=== PATIENT | male | born 1955 | race Caucasian/White ===

== ENCOUNTER 2023-03-11 08:59 | Outpatient (REF) | payer MEDICARE, MEDICAID, SELFPAY ==
[2023-03-11 12:17] LABS: Alanine Aminotransferase 22 U/L (0-40); Albumin Level 4.2 g/dL (3.5-5.0); Alkaline Phosphatase 68 U/L (39-117); Aspartate Amino Transferase 15 U/L (5-37); Bilirubin Direct 0.2 mg/dL (0.0-0.5); Bilirubin Total 0.7 mg/dL (0.0-1.0); Cholesterol 147 mg/dL (<200); HDL Cholesterol 51 mg/dL (>40); LDL Cholesterol Calculated 85 mg/dL (<100); Triglycerides 59 mg/dL (<150)
== END 2023-03-11 09:00 | disposition home or self-care (01) ==
LOC: HO.HHCL 08:59
PROVIDERS: Visit Provider Internal Medicine Geriatric Medicine
DX: E11.9 Type 2 diabetes mellitus without complications (principal)
CPT/HCPCS: 36415; 80061; 80076

== ENCOUNTER 2023-09-14 16:19 | Outpatient (REF) | payer MEDICARE, MEDICAID, SELFPAY ==
[2023-09-14 17:57] LABS: Anion Gap 11 (12-20); Blood Urea Nitrogen 14 mg/dL (9-16); Carbon Dioxide 23 mmol/L (22-29); Chloride 110 mmol/L (96-108); Estimated Glomerular Filt Rate > 60; Glucose Random 231 mg/dL (60-115); Potassium 3.4 mmol/L (3.3-5.1); Sodium 141 mmol/L (135-145)
[2023-09-14 18:00] LABS: Creatinine Urine 83.23 mg/dL; Microalbumin Urine < 5.0 mg/L
== END 2023-09-14 16:20 | disposition home or self-care (01) ==
LOC: HO.HHCL 16:19
PROVIDERS: Visit Provider Internal Medicine Geriatric Medicine
DX: E11.65 Type 2 diabetes mellitus with hyperglycemia (principal)
CPT/HCPCS: 36415; 80048; 82570

== ENCOUNTER 2024-04-05 09:33 | Outpatient (REF) | payer MEDICARE, MEDICAID, SELFPAY ==
[2024-04-05 12:08] LABS: Alanine Aminotransferase 21 U/L (0-40); Albumin Level 4.1 g/dL (3.5-5.0); Alkaline Phosphatase 72 U/L (39-117); Anion Gap 12 (12-20); Aspartate Amino Transferase 13 U/L (5-37); Bilirubin Total 0.7 mg/dL (0.0-1.0); Blood Urea Nitrogen 19 mg/dL (9-16); Calcium 9.4 mg/dL (8.4-10.2); Carbon Dioxide 25 mmol/L (22-29); Chloride 107 mmol/L (96-108); Cholesterol 137 mg/dL (<200); Estimated Glomerular Filt Rate > 60; Glucose Random 140 mg/dL (60-115); HDL Cholesterol 45 mg/dL (>40); LDL Cholesterol Calculated 81 mg/dL (<100); Potassium 4.3 mmol/L (3.3-5.1); Sodium 140 mmol/L (135-145); Total Protein 6.9 g/dL (6.5-8.0); Triglycerides 57 mg/dL (<150)
[2024-04-05 12:14] LABS: Creatinine Urine 140.23 mg/dL; Microalbum/Creatinine Ratio Ur 6.4 ug/mg cr (<30)
[2024-04-05 12:43] LABS: ~HepC Num1 0.11 S/CO (0.00-0.79); ~Hepatitis C Antibody Nonreactive (Nonreactive)
== END 2024-04-05 09:34 | disposition home or self-care (01) ==
LOC: HO.HHCL 09:33
PROVIDERS: Visit Provider Internal Medicine Geriatric Medicine
DX: E11.65 Type 2 diabetes mellitus with hyperglycemia (principal); Z11.59 Encounter for screening for other viral diseases
CPT/HCPCS: 36415; 80053; 80061; 82043; 82570; 86803

== ENCOUNTER 2024-08-22 14:29 | Outpatient (REF) | payer MEDICARE, MEDICAID, SELFPAY ==
--- OUTSIDE RECORDS SUMMARY | 2024-08-22 16:08 | XMS_ITS | Clinical Summary ---
Author Organization [address] [facility] Address [address] [place] [address] Phone Care Team Providers Care Band Instrument Maker Name Role Phone Alycia Ruelas MD Primary Care Pro vider Allergies Active Allergy Reactions Criticality Noted Date Comments Lovastatin 03/31/2024 Muscle pain Simvastatin 03/31/2024 Muscle pain Medications Medication Sig Dispensed Refills Start Date End Date Status aspirin 81 mg chewable tablet Chew 1 tablet (81 mg total) 1 (one) time each day. Active insulin glargine (LANTUS SoloStar) 100 unit/mL (3 mL) injection pen Inject 10 Units into the skin daily. Active glucose 4 gram chewable tablet Take 4 Tablets by mouth as needed. Active dulaglutide (Trulicity) 4.5 mg/0.5 mL pen injector injection Inject 4.5 mg into the skin once a week. Active empagliflozin-metformi n (Synjardy XR) 12.5-1,000 mg tablet, IR - ER, biphasic 24hr Take by mouth 2 Times Daily. Active pravastatin (PRAVACHOL) 40 mg tablet Take 1 tablet (40 mg total) by mouth 1 (one) time each day. Active sildenafiL (VIAGRA) 50 mg tablet Take 1 tablet (50 mg total) by mouth as needed. Active Active Problems Problem Noted Date Diagnosed Date Subungual injury of toe of right foot 03/31/2024 Encounters Date Type Department Care Team Description 07/06/2024 9:15 AM EST Office Visit Orthopedic Surgery [facility] [address] [facility] [address] [place] [address] John Ervin, DPM Dermatophytosis of nail (Primary Dx); Pain in toe of right foot; Pain in toe of left foot; Corns and callosities; Metatarsalgia of both feet; Type II diabetes mellitus with peripheral circulatory disorder (CMS/HCC); Diabetic mononeuropathy simplex (CMS/HCC); Acquired hammer toe of right foot; Hammer toe of left foot from Last 3 Months Immunizations Name Administration Dates Next Due Moderna SARS-CoV-2 COVID-19, mRNA, LNP-S, preservative free 07/16/2022 Medical History Medical History Date Comments T2DM (type 2 diabetes mellitus) (CMS/HCC) DX:T2DM (type 2 diabetes mellitus) ([facility]) Hyperlipidemia DX:Hyperlipidemi a Social History Tobacco Use Types Packs/Day Years Used Date Smoking Tobacco: Never Assessed Sex and Gender Information Value Date Recorded Sex Assigned at Not on file Gender Identity Not on file Sexual Orientation Not on file Job Start Date Occupation Industry Not on file Not on file Not on file Obstetrics History Last Filed Vital Signs Vital Sign Reading Time Taken Comments Blood Pressure - - Pulse - - Temperature - - Respiratory Rate - - Oxygen Saturation - - Inhaled Oxygen Concentration - - Weight 72.1 kg (159 lb) 07/06/2024 8:43 AM EST Height 170.2 cm (5' 7.01 ) 07/06/2024 8:43 AM ES T Body Mass Index 24.9 07/06/2024 8:43 AM EST Plan of Treatment Health Maintenance Due Date Last Done Comments Diabetes: Annual GFR (Glomerular Filtration Rate) 1954 Diabetes: Annual Foot Exam 1964 Diabetes: Annual Retina Eye Exam 1965 Abdominal Aortic Aneurysm (AAA) Screen 04/28/2024 Colorectal Cancer Screening: Colonoscopy 04/28/2024 Falls Risk Assessment 04/28/2024 Medicare Annual Wellness Visit 04/28/2024 Social Influencers of Health Screening 04/28/2024 Diabetes: Annual Urine Albumin-Creatinine Ratio (uACR) 04/29/2024 Pneumococcal Vaccine: 65+ Years (3 of 3 - PPSV23 or PCV20) 06/22/2024 12/06/2021, 06/22/2019, 04/29/2012 Depression Screening 09/14/2024 09/14/2023 Diabetes: Blood Sugar Control Test (HGBA1C) 12/19/2024 06/20/2024 DTaP,Tdap,and Td Vaccines (4 - Td or Tdap) 01/13/2028 01/12/2018, 07/25/2012, 04/22/2012 Cholesterol Screening (Lipid Panel) 04/05/2029 04/05/2024 Zoster Vaccines Completed 06/08/2023, 02/18, 12/31/2015 RSV Immunization Patients 60+ Years Old Completed 06/22/2023 Hepatitis B Vaccines Completed 09/02/2023, 04/07/2023, 03/11/2023 Hepatitis C Screening Completed 04/05/2024 Influenza Vaccine Completed 04/05/2024, , 04/18/2022, Additional history exists COVID-19 Vaccine Completed 05/03/2024, , 07/16/2022, Additional history exists HIB Vaccines Aged Out No longer eligi ble based on patient's age to complete this topic HPV Vaccines Aged Out No longer eligi ble based on patient's age to complete this topic Hepatitis A Vaccines Aged Out No long er eligible based on patient's age to complete this topic IPV Vaccines Aged Out No longer eligi ble based on patient's age to complete this topic MMR Vaccines Aged Out No longer eligi ble based on patient's age to complete this topic Meningococcal ACWY Vaccine Aged Out N o longer eligible based on patient's age to complete this topic RSV Immunization Patients Under 20 months Aged Out No longer eligible based on patient's age to complete this topic Varicella Vaccines Aged Out No longer eligible based on patient's age to complete this topic Care Teams Band Instrument Maker Relationship Specialty Start Date End Date Alycia Ruelas MD [address] [facility] [address] [place] [id number] PCP - General 02/23/24
--- OUTSIDE RECORDS SUMMARY | 2024-08-22 16:09 | XMS_ITS | Encounter Summary ---
Author Organization [employer] Address [address] [facility] [address] [place] [address] Care Team Providers Care Shellfish Harvester Name Role Phone Name, El TURNER Primary Care Provider [phone] Kanwal Whiteside PharmD Unavailable [phone] John Ervin DPM Unavailable [phone] Marilu Castro MD Unavailable [phone] Reason for Visit * Reason Comments Medicare Annual Wellness Visit Initial A [place] scheduled Encounter Details Date Type Department Care Team ([facility] st Contact Info) Description 07/26/2024 Patient Outreach [facility] MEDICINE [address] [place], [place] [id number] Name, MD El [address] [place] [address] Medicare Annual Wellness Visit Initial (AWV scheduled) Social History Tobacco Use Types Packs/Day Years Used Date Smoking Tobacco: Former Cigarettes Smokeless Tobacco: Never Alcohol Use Standard Drinks/Week Comments Not Currently 0 (1 standard drink = 0.6 oz pur e alcohol) Depression Answer Date Recorded Patient Health Questionnaire-9 Score 0 09/14/2023 Patient Health Questionnaire-9 Score 0 09/14/2023 Last PHQ-9: Questionnaire Data Not on file 0 09/14/2023 Housing Stability Answer Date Recorded What is your housing situation today? I have marcia ferrari 09/14/[address] you li ve. Do you have problems with any of the following? None of the above 09/14/2023 Food Insecurity Answer Date Recorded Within the past 12 months, y ou worried that your food would run out before you got money to buy more: Never True 09/14/2023 Within the past 12 months,th e food you bought just didn't last and you didn't have enough money to get more: Never True Transportation Answer Date Recorded In the past 12 months, has l ack of transportation kept you from medical appts, meetings, work or from getting things needed for daily living? No 09/14/2023 Utilities Answer Date Recorded In the past 12 months, has t he electric, gas, oil or water company threatened to shut off services in your home? No 09/14/2023 Depression Answer Date Recorded Patient Health Questionnaire-2 Score 0 09/14/2023 Sex and Gender Information Value Date Recorded Sex Assigned at Male 05/19/2022 10:17 AM EDT Legal Sex Male 10:17 AM EDT Gender Identity Male 05/19/2022 10:17 AM EDT Sexual Orientation Choose not to disclose 2021 10:17 AM EDT documented as of this encounter Progress Notes * Elisa Vargas - 07/26/2024 1:29 PM EST CC Elisa placed outbound call to patient for Annual Wellness Visit outreach. Patient's name and were confirmed. Patient educated on the purpose of Medicare Annual Wellness Visits and is agreeable to an appointment with provider. Insurance verified prior to scheduling. Patient scheduled for AWV appointment on 08/22/2024 at 1:00 PM with [facility] Appropriate screenings completed in anticipation of appointment. Medicare Wellness Visit Health Risk Assessment was completed with the patient over the phone and scanned into patient's chart for review at the visit. Patient advised to bring to appointment a photo id and insurance card. Also advised to bring in all medications, including [id number], vitamins, or supplements and any copies of Advance Directives and Health Care Proxy forms. Patient provided with education on contacting the Health Center with any questions or concerns prior to the scheduled appointment. Patient educated on extended clinic hours on Thursday through Thursday, and Walk- In Urgent Care Located in [facility] of [facility]. Patient provided with after-hours line for [facility], , which offer night time triage service and option to transfer to material requisitioner provider if needed.Annual Wellness Visit letter will be mailed out to patient's address. documented in this encounter Plan of Treatment Upcoming Encounters Date Type Department Care Team (Late st Contact Info) Description 09/19/2024 10:00 AM EST Medication Management [facility] [address] [place] [address] Kanwal Whiteside PharmD [address] [place] [address] 09/26/2024 10:00 AM EDT Office Visit [facility] OPTOMETRY [address] [place] [address] Vel, Priscilla, OD [address] [place] [address] 10/19/2024 2:15 PM EDT Office Visit [facility] [address] [place] [address] Name, MD El [address] [place] [address] documented as of this encounter Goals Goal Patient Goal Type Associated Problems Recent Progress Patient-Stated? Author Hemoglobin A1c < 7 Result Component 6.9( 4 11:03 AM EST) No Kanwal Whiteside PharmThelma Record your blood sugar as directed Result Component No Kanwal Whiteside PharmD Note: Use CGM, ensuring sensor is scanned at least once every 8 hours to capture 24H data. Check BG manually, as directed. documented as of this encounter Visit Diagnoses Not on filedocumented in this encounter Additional Health Concerns Assessment Noted Time PHQ-9 Depression Total Score: 0 09/14/19 24 3:42 PM EST documented as of this encounter Care Teams Shellfish Harvester Relationship Specialty Start Date End Date Name, MD El [address] [place] [id number] PCP - General Family Medicine 10/24/15 Kanwal Whiteside, PharmD [address] [place] [phone] Pharmacist Internal Medicine 01/28/23 John Ervin DPM [address] [place] [id number] Podiatry 02/18/24 Marilu Castro MD [address] [place] [id number] Family Physician Dermatology 02/18/24 08/21/24 documented as of this encounter
--- OUTSIDE RECORDS SUMMARY | 2024-08-22 16:09 | XMS_ITS | Encounter Summary ---
Author Organization [employer] Address [address] [facility] 7t [place] [address] Care Team Providers Care Adhesive Bonding Machine Operator Name Role Phone Name, El TURNER Primary Care Provider [phone] Kanwal Whiteside PharmD Unavailable [phone] Priscilla Crowder OD Unavailable [phone] John Ervin DPM Unavailable Reason for Referral * Consultation (Routine) - Pending Review Specialty Diagnoses / Procedures Referred By Zaira macario Referred To Contact Audiology Diagnoses Failed hearing screening Maegan Robledo MD [address] [place] [address] Phone: tel: fax: Referral ID Status Reason Start Date Expiration Date Visits Requested Visits Authorized [id number] Pending Review Specialty Services Required 08/22/2024 08/22/2025 1 1 * Imaging (Routine) - Authorized Specialty Diagnoses / Procedures Referred By Zaira macario Referred To Contact Cardiology Diagnoses Personal history of smoking Procedures US AAA Screening Maegan Robledo MD [address] [place] [address] Phone: tel: fax: [address] Phone: tel: fax: Referral ID Status Reason Start Date Expiration Date Visits Requested Visits Authorized [id number] Authorized Perform Procedure 08/22/2024 08/22/2025 1 1 Reason for Visit * Reason Comments AWV Encounter Details Date Type Department Care Team (Late st Contact Info) Description 08/22/2024 1:00 PM EST Office Visit [facility] [address] [place] [address] Maegan Robledo MD [address] [place] [address] Personal history of smoking (Primary Dx); Screen for sexually transmitted diseases; Failed hearing screening Social History Tobacco Use Types Packs/Day Years Used Date Smoking Tobacco: Former Cigarettes 0.5 10 1 970 - 9153 Passive Smoke Exposure: Past Smokeless Tobacco: Never Tobacco Cessation:Counseling Given: No Alcohol Use Standard Drinks/Week Comments Not Currently 0 (1 standard drink = 0.6 oz pur e alcohol) Depression Answer Date Recorded Patient Health Questionnaire-9 Score 1 08/22/2024 Patient Health Questionnaire-9 Score 1 08/22/2024 Last PHQ-9: Questionnaire Data Not on file 0 08/22/2024 Housing Stability Answer Date Recorded What is your housing situation today? I have housing today, but I am worried about losing housing in the future 08/22/[address] you li ve. Do you have problems with any of the following? None of the above 08/22/2024 Food Insecurity Answer Date Recorded Within the [...] Date Recorded Patient Health Questionnaire-2 Score 0 08/22/2024 Internet Access Answer Date Recorded Internet Access Q1 Yes 08/22/2024 Internet Access Q2 Not on file 08/22/2024 Sex and Gender Information Value Date Recorded Sex Assigned at Male 05/19/2022 10:17 AM EDT Legal Sex Male 10:17 AM EDT Gender Identity Male 05/19/2022 10:17 AM EDT Sexual Orientation Choose not to disclose 2021 10:17 AM EDT documented as of this encounter Last Filed Vital Signs Vital Sign Reading Time Taken Comments Blood Pressure 118/73 08/22/2024 1:07 PM EST Pulse 89 08/22/2024 1:07 PM EST Temperature - - Respiratory Rate 18 08/22/2024 1:07 PM EST Oxygen Saturation - - Inhaled Oxygen Concentration - - Weight 69.7 kg (153 lb 9.6 oz) 08/22/2024 1:07 P M EST Height 168.9 cm (5' 6.5 ) 08/22/2024 1:07 PM EST Body Mass Index 24.42 08/22/2024 1:07 PM EST documented in this encounter Progress Notes * Maegan Robledo MD - 08/22/2024 1:00 PM EST Subjective Patient ID: Beny Friedman is a 69 y.o. year old male who presents today for Medicare Annual Wellness Visit. Preferred language for medical information: Scottish Objective Vitals: 08/22/24 1307 BP: 118/73 BP Location: Left arm Patient Position: Sitting BP Cuff Size: Adult Pulse: 89 Resp: 18 Weight: 153 lb 9.6 oz (69.7 kg) Height: 5' 6.5 (1.689 m) Hearing Screening 1000Hz 2000Hz 4000Hz Right ear 25 25 55 Left ear 25 40 50 Note: bilateral ear exam reveals clear EAC's. Allergies Allergen Reactions Lovastatin Other Other reaction(s): muscle pain, hiccups Simvastatin Other reaction(s): muscle pain Current Outpatient Medications: aspirin (Aspirin Low Dose) 81 MG EC tablet, Take 1 tablet (81 mg) by mouth Once per day., Disp: 90 tablet, Rfl: 3 Continuous Blood Gluc Motion Picture Camera Lens Technician (FreeStyle Tierra 2 [place]) device, Use as directed, Disp: 1 each, Rfl: 0 Continuous Glucose Sensor (FreeStyle Tierra 2 Sensor) [facility], Apply 1 sensor, as directed, every 14 days for CGM, Disp: 2 each, Rfl: 11 Dulaglutide (Trulicity) 4.5 MG/0.5ML solution auto-injector, Inject 4.5 mg under the skin 1 (one) time per week., Disp: , Rfl: empagliflozin-metFORMIN ER (Synjardy XR) 12.5-1000 MG 24 hr tablet, Take 1 tablet by mouth with breakfast and with evening meal., Disp: 60 tablet, Rfl: 11 glucose 4 g chewable tablet, Chew 4 tablets (16 g) if needed for low blood sugar., Disp: 20 tablet,Rfl: 11 glucose blood (FreeStyle Precision David Test) test strip, Use to test blood sugar up to 2 times daily, as directed, Disp: 50 each, Rfl: 5 insulin glargine (Basaglar KwikPen) 100 UNIT/ML pen, INJECT 12 UNITS SUBCUTANEOUSLY ONCE DAILY, Disp: 15 mL, Rfl: 5 insulin pen needle (BD Pen Needle Luzmaria U/F) 32G x 4 mm misc, Inject 1 each under the skin Once per day., Disp: 100 each, Rfl: 3 pravastatin (Pravachol) 40 MG tablet, TAKE 1 TABLET BY MOUTH EVERY EVENING, Disp: 90 tablet, Rfl: 3 TRUEplus Lancets 33G misc, Use to test blood sugar 2 time(s) daily, Disp: 100 each, Rfl: 11 Immunization History Administered Date(s) Administered Hep B, adult 03/11/2023, 04/07/2023, 09/02/2023 Influenza High-dose Quadrivalent Preservative Free 05/27/2021, 04/18/2022 Influenza Quadrivalent Adjuvanted 03/25/2020 Influenza injectable quadrivalent IIV4 with preservative 04/04/2016, 04/28/2017 Influenza injectable quadrivalent preservative free 04/23/2015, 03/14/2017, 04/04/2018, 04/18/2019,04/07/2023 Influenza, High Dose Seasonal, Preservative Free 04/05/2024 Influenza, IIV3, injectable 04/07/2011, 05/12/2014 Influenza, Split (incl. purified surface antigen) 04/22/2012 Perico SARS-CoV-2 Vaccination 10/03/2020 Pfizer Covid-19 Vaccine 12+ 05/13/2021, 12/06/2021, 06/08/2023, 05/03/2024 Pfizer Covid-19 Vaccine 12+ Bivalent 07/16/2022 Pfizer Covid-19 Vaccine 12+ nolberto-sucrose (Duke Cap) 12/06/2021 Pneumococcal Conjugate PCV 13 12/06/2021 Pneumococcal Polysaccharide PPSV23 04/29/2012, 06/22/2019 RSV Bivalent 06/22/2023 TD (adult), 2 Lf tetanus toxoid, preservative free, adsorbed 04/22/2012 Td (adult), 5 Lf tetanus toxoid, preservative free, adsorbed 07/25/2012 Tdap 01/12/2018 Zoster, Recombinant 03/10/2023, 06/08/2023 Zoster, live 12/31/2015 Past Medical History: Diagnosis Date Alcoholism (CMS/HCC) In remission Cataract Diabetes mellitus (CMS/HCC) ED (erectile dysfunction) HLD (hyperlipidemia) Macular drusen, bilateral Needle phobia Retinal hole of right eye History reviewed. No pertinent surgical history. Family History Problem Relation Name Age of Onset Hypertension Mother Kusum Diabetes Mother Kusum Heart disease Mother Kusum Lung disease Mother Kusum Other (smoker) Mother Kusum Diabetes Father Rusty Stroke Father Rusty Hypertension Father Rusty Obesity Father Rusty Heart disease Father Rusty Other (Other) Father Rusty bilateral BKA Social History Tobacco Use Smoking Status Former Current packs/day: 0.00 Average packs/day: 0.5 packs/day for 10.0 years (5.0 ttl pk-yrs) Types: Cigarettes Start date: 1969 Quit date: 1979 Years since quittin.1 Passive exposure: Past Smokeless Tobacco Never Patient Health Questionnaire-9 Score: 1 (08/22/2024 1:15 PM) Patient Health Questionnaire-2 Score: 0 (08/22/2024 1:15 PM) Thoughts that you would be better off or hurting yourself in some way: Not at all (08/22/2024 1:15 PM) SBIRT - Alcohol How many times in the past year have you had 5 or more (for men) or 4 or more (for women) drinks eunice day?: None Score: 0 SBIRT - Drugs How many times in the past year have you used an illegal drug or used a prescription medication fornon-medical reasons?: None Score: 0 Social Drivers of Health Tobacco Use: Medium Risk (08/22/2024) Tobacco Smoking Tobacco Use: Former Smokeless Tobacco Use: Never Passive Exposure: Past Alcohol Use: Not on file Food Insecurity: Low Risk (09/14/2023) Food Insecurity Within the past 12 months, you worried that your food would run out before you got money to buy more:: Never True Within the past 12 months,the food you bought just didn't last and you didn't have enough money to get more: : Never True Transportation Needs: Low Risk (09/14/2023) Transportation In the past 12 months, has lack of transportation kept you from medical appts, meetings, work or from getting things needed for daily living? : No Intimate Partner Violence: Not on file Depression: None or minimal depression (08/22/2024) Depression PHQ-9 Score: 1 Last PHQ-9: Flowsheet Data: 1 Last PHQ-9: Questionnaire Data: Not on file Housing Stability: Low Risk (08/22/2024) Housing Stability What is your housing situation today?: I have housing today, but I am worried about losing housing in the future Think about the place you live. Do you have problems with any of the following? : None of the above Utilities: Low Risk (09/14/2023) Utilities In the past 12 months, has the electric, gas, oil or water [employer] threatened to shut off services in your home? : No Internet Access: Low Risk (08/22/2024) Internet Access Internet Access Q1: Yes Internet Access Q2: Not on file Cognitive Assessment (Mini-Cog): [x] Normal [] Abnormal Three Word Recall: 2 out of 3 Clock Drawin out of 2 Total Score: 4 out of 5 Mini-Cog sheet to be scanned into chart. Functional Assessment: Activities of Daily Living ([place] ADL) Bathing: independent Dressing: independent Toileting: independent Transferring: independent Continence: independent Feeding: independent SHOWCASE MAKER: No Fall Risk Assessment: [x] Low risk [] High risk Feels unsteady when standing or walking? Yes Worries about falling? No Has fallen in past year? No Number of falls? N/A TUG completed: No Score: Patient Care Team: El Sommer MD as PCP - General (Family Medicine) Juventino TavarezD as Pharmacist (Internal Medicine) John Ervin DPM (Podiatry) Priscilla Crowder OD (Optometry) Advance Care Planning: Patient's current capacity: Full capacity Agent(s): Health Care Proxy paperwork is incomplete. [place] Medical Orders for Life-Sustaining Treatment (MOLST) is incomplete. Code Status: Assume Full Assessment/Plan Health Maintenance Topic Date Due Diabetes: Foot Exam 09/14/2024 Diabetes: Hemoglobin A1C 12/19/2024 Lipid Panel 04/05/2025 Diabetes: Urine Protein Screening 04/05/2025 Depression Screening 08/22/2025 Tobacco Screening 08/22/2025 SDOH Screening 08/22/2025 Alcohol/Substance Use Screening 08/22/2025 Eye Exam 03/28/2026 Colorectal Cancer Screening 11/12/2026 Pneumococcal Vaccine: 50+ Years (3 of 3 - PCV20 or PCV21) 12/06/2026 DTaP/Tdap/Td Vaccines (2 - Td or Tdap) 01/13/2028 RSV Patients and Patients Aged 60 years or older Completed Hepatitis B Vaccines Completed Influenza Vaccine Completed Zoster Vaccines Completed Hepatitis C Screening Completed COVID-19 Vaccine Completed RSV under 20 months Aged Out HIB Vaccines Aged Out IPV Vaccines Aged Out Hepatitis A Vaccines Aged Out Meningococcal Vaccine Aged Out Rotavirus Vaccines Aged Out HPV Vaccines Aged Out Patient refused the following health maintenance recommendations: none Problem List Items Addressed This Visit None Visit Diagnoses Personal history of smoking - Primary Relevant Orders AAA Screening Screen for sexually transmitted diseases Relevant Orders HIV-1/2 Antigen and Antibodies, Fourth Generation, with Reflexes Failed hearing screening Relevant Orders Referral to Audiology Counseling/Education [] Lung Cancer Screening Form Completed Yes [] Self Reported Health Status Completed Yes [] Print After Visit Summary (AVS) [] Advance directives handout provided [x] Schedule a visit to complete MOLST [] Fall risk identified: [] Work on strength/balance [] Stay hydrated [] Start daily vitamin D supplement [] Reduce home hazards (handout provided) [] High risk medications identified - schedule FU with PCP to discuss [x] Follow-up with PCP Yes MOLST Follow-up scheduled 10/19/24 Maegan Churchill, have met with the patient, reviewed the RN note and agree with the assessment & plan of care as documented above. Summary and recommendations: Patient referred to Audiology due to failed hearing screen. HIV test ordered. AAA screen ordered. Sandra scheduled with PCP on 10/19 to review these lab results and discuss MOLST. Maegan Robledo MD documented in this encounter Plan of Treatment Upcoming Encounters Date Type Department Care Team (Late st Contact Info) Description 09/19/2024 10:00 AM EST Medication Management [facility] [address] [place] [address] Puia, Kanwal, PharmD [address] [place] [address] 09/26/2024 10:00 AM EDT Office Visit [facility] OPTOMET[facility] [address] [place] [address] Vel, Priscilla, OD [address] [place] [address] 10/19/2024 2:15 PM EDT Office Visit [facility] [address] [place] [address] Name, MD El [address] [place] [address] Scheduled Orders Name Type Priority Associated Diagnoses Orde r Schedule HIV-1/2 Antigen and Antibodies, Fourth Generation, with Reflexes Lab Routine Screen for sexually transmitted diseases Expected: 08/22/2024 (Approximate), Expires: 08/22/2025 Scheduled Referrals Name Type Priority Associated Diagnoses Orde r Schedule Referral to Audiology Outpatient Referral Routine Failed hearing screening Expected: 08/22/2024 (Approximate), Expires: 08/22/2025 documented as of this encounter Goals Goal Patient Goal Type Associated Problems Recent Progress Patient-Stated? Author Hemoglobin A1c < 7 Result Component 6.9( 4 11:03 AM EST) No Puia, Kanwal, PharmD Record your blood sugar as directed Result Component No Puia, Kanwal, PharmD Note: Use CGM, ensuring sensor is scanned at least once every 8 hours to capture 24H data. Check BG manually, as directed. documented as of this encounter Visit Diagnoses Diagnosis Personal history of smoking- Primary Personal history of tobacco use, presenting hazards to health Screen for sexually transmitted diseases Screening examination for venereal disease Failed hearing screening Encounter for hearing examination following failed hearing screening documented in this encounter Additional Health Concerns Assessment Noted Time PHQ-9 Depression Total Score: 1 08/22/19 25 1:15 PM EST documented as of this encounter Care Teams Adhesive Bonding Machine Operator Relationship Specialty Start Date End Date Name, MD El [address] [place] [address] PCP - General Family Medicine 10/24/15 Kanwal Whiteside PharmD [address] [place] [address] Pharmacist Internal Medicine 01/28/23 Priscilla Crowder OD [address] [place] [address] Optometry 08/18/24 John Ervin DPM [address] [place] [address] Podiatry 02/18/24 documented as of this encounter
--- OUTSIDE RECORDS SUMMARY | 2024-08-22 16:09 | XMS_ITS | Encounter Summary ---
Author Organization [employer] Address [address] [facility] 7t [place] [address] Care Team Providers Care Cardiograph Operator Name Role Phone Name, El TURNER Primary Care Provider [phone] Kanwal Whiteside PharmD Unavailable [phone] John Ervin DPM Unavailable [phone] Marilu Castro MD Unavailable [phone] Encounter Details Date Type Department Care Team (Late st Contact Info) Description 08/16/2024 Telephone [facility] [address] [place] [address] Yne Knox, RN Social History Tobacco Use Types Packs/Day Years [...] AM EDT documented as of this encounter Miscellaneous Notes * Telephone Encounter - Yen Knox RN - 08/16/2024 2:10 PM EST Med B form faxed to [facility] and confirmation received. Form placed in H.I.M scanning bin. documented in this encounter Plan of Treatment Upcoming Encounters Date Type Department Care Team (Late st Contact Info) Description 09/19/2024 10:00 AM EST Medication Management [facility] [address] [place] [address] Kanwal Whiteside, PharmD [address] [place] [address] 09/26/2024 10:00 AM EDT Office Visit [facility] OPTOMETRY [address] [place] [address] Priscilla Crowder, OD [address] [place] [address] 10/19/2024 2:15 PM EDT Office Visit [facility] [address] [place] [address] Name, MD El [address] [place] [address] documented as of this encounter Goals Goal Patient Goal Type Associated Problems Recent Progress Patient-Stated? Author Hemoglobin A1c < 7 Result Component 6.9( 4 11:03 AM EST) No Kanwal Whiteside, PharmD Record your blood sugar as directed [...] documented as of this encounter Care Teams Cardiograph Operator Relationship Specialty Start Date End Date Name, MD El [address] [place] [address] PCP - General Family Medicine 10/24/15 Kanwal Whiteside PharmD [address] [place] [address] Pharmacist Internal Medicine 01/28/23 John Ervin DPM [address] [address] Podiatry 02/18/24 Marilu Castro MD [address] [place] [address] Family Physician Dermatology 02/18/24 08/21/24 documented as of this encounter
--- OUTSIDE RECORDS SUMMARY | 2024-08-22 16:09 | XMS_ITS | Encounter Summary ---
Author Organization [employer] Address [address] [facility] 7t [place] [address] Care Team Providers Care Fuel Tank Sealer And Tester Name Role Phone Name, El TURNER Primary Care Provider [phone] Kanwal Whiteside PharmD Unavailable [phone] Priscilla Crowder OD Unavailable [phone] John Ervin DPM Unavailable [phone] Marilu Castro MD Unavailable [phone] Encounter Details Date Type Department Care Team (Late st Contact Info) Description 08/18/2024 Telephone [facility] [address] [place] [address] Darline Leon RN Social History Tobacco Use Types Packs/Day [...] encounter Miscellaneous Notes * Telephone Encounter - Darline Leon RN - 08/18/2024 1:53 PM EST T/C to pt to perform Medical/Surgical/Family history before AWV on Thursday. No answer, left voicemail to return call to [facility]. documented in this encounter Plan of Treatment Upcoming Encounters Date Type Department Care Team (Late st Contact Info) Description 09/19/2024 10:00 AM EST Medication Management [facility] [address] [place] [phone] Kanwal Whiteside, PharmD [address] [place] [address] 09/26/2024 10:00 AM EDT Office Visit [facility] OPTOMETRY [address] [place] [address] Vel, Priscilla, OD [address] [place] [address] 10/19/2024 2:15 PM EDT Office Visit [facility] [address] [place] [address] Name, MD El [address] [place] [address] documented as of this encounter Goals Goal Patient Goal Type Associated Problems Recent Progress Patient-Stated? Author Hemoglobin A1c < 7 Result Component 6.9( 4 11:03 AM EST) No Knawal Whiteside PharmD Record your blood sugar as directed [...] documented as of this encounter Care Teams Fuel Tank Sealer And Tester Relationship Specialty Start Date End Date Name, MD El [address] [place] [address] PCP - General Family Medicine 10/24/15 Kanwal Whiteside PharmD [address] [place] [address] Pharmacist Internal Medicine 01/28/23 Priscilla Crowder OD [address] [place] [address] Optometry 08/18/24 John Ervin DPM [address] [place] [address] Podiatry 02/18/24 Marilu Castro MD [address] [place] [address] Family Physician Dermatology 02/18/24 08/21/24 documented as of this encounter
--- OUTSIDE RECORDS SUMMARY | 2024-08-22 16:09 | XMS_ITS | Encounter Summary ---
Author Organization [employer] Address [address] [facility] 7t [place] [address] Care Team Providers Care Manager Cath Lab Name Role Phone Name, El TURNER Primary Care Provider [phone] Kanwal Whiteside PharmD Unavailable [phone] Priscilla Crowder OD Unavailable [phone] John Ervin DPM Unavailable [phone] Encounter Details Date Type Department Care Team (Latest Contact Info) Description 08/22/2024 Travel Social History Tobacco Use Types Packs/Day Years Used Date Smoking Tobacco: Former Cigarettes 0.5 10 1 970 - 1980 Passive Smoke Exposure: Past Smokeless Tobacco: Never Alcohol Use Standard Drinks/Week [...] AM EDT documented as of this encounter Plan of Treatment Upcoming Encounters Date Type Department Care Team (Late st Contact Info) Description 09/19/2024 10:00 AM EST Medication Management [facility] [address] [place] [address] Kanwal Whiteside PharmD [address] [place] [address] 09/26/2024 10:00 AM EDT Office Visit [facility] OPTOMETRY [address] [place] [address] Vel, Priscilla, OD [address] [place] [address] 10/19/2024 2:15 PM EDT Office Visit [facility] [address] [place] [address] Name, MD El [address] [place] [address] documented as of this encounter Goals Goal Patient Goal Type Associated Problems Recent Progress Patient-Stated? Author Hemoglobin A1c < 7 Result Component 6.9( 11:03 AM EST) No Kanwal Whiteside PharmD Record your blood sugar as [...] documented as of this encounter Care Teams Manager Cath Lab Relationship Specialty Start Date End Date Name, MD El [address] [place] [address] PCP - General Family Medicine 10/24/15 Kanwal Whiteside PharmD [address] [place] [address] Pharmacist Internal Medicine 01/28/23 Priscilla Crowder OD [address] [place] [address] Optometry 08/18/24 John Ervin DPM [address] [place] [address] Podiatry 02/18/24 documented as of this encounter
--- OUTSIDE RECORDS SUMMARY | 2024-08-22 16:09 | XMS_ITS | Encounter Summary ---
Author Organization [employer] Address [address] [facility] [address] [place] [address] Care Team Providers Care Dermatology Specialist Name Role Phone Name, El TURNER Primary Care Provider Kanwal Whiteside PharmD Unavailable [phone] Priscilla Crowder OD Unavailable [phone] John Ervin DPM Unavailable [phone] Marilu Castro MD Unavailable [phone] Reason for Visit * Reason Comments Med Refill Encounter Details Date Type Department Care Team (Late st Contact Info) Description 08/19/[address] [facility] MEDICINE [address] [place] [address] [phone] Name, MD El [address] [place] [address] [phone] Type 2 diabetes mellitus without complication, without long-term current use of insulin ([facility]) Social History Tobacco Use Types Packs/Day Years Used Date Smoking Tobacco: Former Cigarettes Smokeless Tobacco: Never Depression Answer Date Recorded Patient Health Questionnaire-9 Score 0 07/16/2022 Depression Answer Date Recorded Patient Health Questionnaire-2 Score 0 07/16/2022 Sex and Gender Information Value Date Recorded Sex Assigned at Male 05/19/2022 10:17 AM EDT Legal Sex Male 10:17 AM EDT Gender Identity Male 05/19/2022 10:17 AM EDT Sexual Orientation Choose not to disclose 2021 10:17 AM EDT documented as of this encounter Plan of Treatment Upcoming Encounters Date Type Department Care Team (Late Contact Info) Description 09/19/2024 10:00 AM EST Medication Management [facility] MEDICINE [address] [place] [address] Kanwal Wihteside PharmD [address] [place] [address] 09/26/2024 10:00 AM EDT Office Visit [facility] OPTOMETRY [address] [place] [address] Priscilla Crowder, OD [address] [place] [address] 10/19/2024 2:15 PM EDT Office Visit [facility] MEDICINE [address] [place] [address] Name, [place] [address] documented as of this encounter Visit Diagnoses Diagnosis Type 2 diabetes mellitus without complication, without long-term current use of insulin ([facility]) documented in this encounter Additional Health Concerns Assessment Noted Time PHQ-9 Depression Total Score: 0 07/16/20 22 2:17 PM EST documented as of this encounter Care Teams Dermatology Specialist Relationship Specialty Start Date End Date Name, MD El Justine [place], [place] PCP - General Family Medicine 10/24/15 Kanwal Whiteside PharmD Justine [place], [place] Pharmacist Internal Medicine 01/28/23 Priscilla Crowder, OD [address] [place] [address] Optometry 08/18/24 John Ervin DPM [address] [place] [address] Podiatry 02/18/24 Marilu Castro MD [address] [place] [address] Family Physician Dermatology 02/18/24 08/21/24 documented as of this encounter
--- OUTSIDE RECORDS SUMMARY | 2024-08-22 16:09 | XMS_ITS | Encounter Summary ---
Author Organization [employer] Address [address] [facility] 7t [place] [address] Care Team Providers Care Motorcycle Riding Instructor Name Role Phone Name, El TURNER Primary Care Provider [phone] Kanwal Whiteside PharmD Unavailable [phone] Priscilla Crowder OD Unavailable [phone] John Ervin DPM Unavailable [phone] Marilu Castro MD Unavailable [phone] Reason for Visit * Reason Comments Med Refill Encounter Details Date Type Department Care Team (Late st Contact Info) Description 11/01/2023 Refill [facility] MEDICINE [address] [place], [place] [phone] Kanwal Whiteside, PharmD [address] [place] [address] Type 2 diabetes mellitus with hyperglycemia, without long-term current use of insulin ([facility]) Social History Tobacco Use Types Packs/Day Years [...] Description 09/19/2024 10:00 AM EST Medication Management [facility] MEDICINE [address] [place] [address] Kanwal Whiteside, PharmD [address] [place] [address] 09/26/2024 10:00 AM EDT Office Visit [facility] OPTOMETRY [address] [place] [address] Vel, Priscilla, OD [address] [place] [address] 10/19/2024 2:15 PM EDT Office Visit [facility] [address] [place] [address] Name, MD El [address] [place] [address] documented as of this encounter Goals Goal Patient Goal Type Associated Problems Recent Progress Patient-Stated? Author Hemoglobin A1c < 7 Result Component 6.9( 11:03 AM EST) No Kanwal Whiteside, PharmD Record your blood sugar as directed Result Component No Kanwal Whiteside PharmD Note: Use CGM, ensuring sensor is scanned at least once every 8 hours to capture 24H data. Check BG manually, as directed. documented as of this encounter Visit Diagnoses Diagnosis Type 2 diabetes mellitus with hyperglycemia, without long-term current use of insulin ([facility]) documented in this encounter Additional Health Concerns Assessment Noted Time PHQ-9 Depression Total Score: 0 09/14/19 24 3:42 PM EST documented as of this encounter Care Teams Motorcycle Riding Instructor Relationship Specialty Start Date End Date Name, MD El [address] [place] [address] PCP - General Family Medicine 10/24/15 Kanwal Whiteside PharmD [address] [place] [address] Pharmacist Internal Medicine 01/28/23 Priscilla Crowder OD [address] [place] [address] Optometry 08/18/24 John Ervin DPM [address] [place] [address] Podiatry 02/18/24 Marilu Castro MD [address] [place] [address] Family Physician Dermatology 02/18/24 08/21/24 documented as of this encounter
--- OUTSIDE RECORDS SUMMARY | 2024-08-22 16:09 | XMS_ITS | Encounter Summary ---
Author Organization [employer] Address [address] [facility] 7t [place] [address] Care Team Providers Care Patient Accounts Manager Name Role Phone Name, El TURNER Primary Care Provider Kanwal Whiteside PharmD Unavailable Priscilla Crowder OD Unavailable John Ervin DPM Unavailable [phone] Marilu Castro MD Unavailable Encounter Details Date Type Department Care Team (Late st Contact Info) Description 12/18/2022 Abstract [facility] MEDICINE [address] [place], [place] [phone] Name, MD El [address] [place], [place] [phone] Social History Tobacco Use Types Packs/Day Years [...] not to disclose 2021 10:17 AM EDT COVID-19 Exposure Response Date Recorded In the last 10 days, have yo u been in contact with someone who was confirmed or suspected to have Coronavirus/COVID-19? No / Unsure 11/18/2022 10:56 AM EDT documented as of this encounter Plan of Treatment Upcoming Encounters Date Type Department Care Team (Late st Contact Info) Description 09/19/2024 10:00 AM EST Medication Management [facility] MEDICINE [address] [place] [address] Kanwal Whiteside PharmD [address] [place] [address] 09/26/2024 10:00 AM EDT Office Visit [facility] OPTOMETRY [address] [place] [address] Vel, Priscilla, OD 230 [place] [address] 10/19/2024 2:15 PM EDT Office Visit [facility] MEDICINE [address] [place] [address] Name, MD El [address] [place] [address] documented as of this encounter Procedures Procedure Name Priority Date/Time Associated Diagnosis Comments HM COLONOSCOPY Routine 11/12/2016 3:06 PM EDT documented in this encounter Results * Colonoscopy (11/12/2016 3:06 PM EDT) Colonoscopy Normal Normal Narrative Teresita Helms - 11/12/2016 3:06 PM EDT Recommended 10 year follow up Historical Provider HEALTH MAINTENANCE Final Result documented in this encounter Visit Diagnoses Not on filedocumented in this encounter Additional Health Concerns Assessment Noted Time PHQ-9 Depression Total Score: 0 07/16/20 22 2:17 PM EST documented as of this encounter Care Teams Patient Accounts Manager Relationship Specialty Start Date End Date Name, [place] [address] PCP - General Family Medicine 10/24/15 Kanwal Whiteside, Esperanza [address] [place] [address] Pharmacist Internal Medicine 01/28/23 Priscilla Crowder OD [address] [place] [address] Optometry 08/18/24 John Ervin DPM [address] [address] Podiatry 02/18/24 Marilu Castro MD [address] [place] [address] Family Physician Dermatology 02/18/24 08/21/24 documented as of this encounter
--- OUTSIDE RECORDS SUMMARY | 2024-08-22 16:09 | XMS_ITS | Clinical Summary ---
Author Organization [facility] [employer] Address [address] [facility] 7t [place] [address] Care Team Providers Care Swimming Pool Service Technician Name Role Phone Name, El TURNER Primary Care Provider [phone] Kanwal Whiteside PharmD Unavailable [phone] Priscilla Crowder OD Unavailable John Ervin DPM Unavailable [phone] Allergies Active Allergy Reactions Criticality Noted Date Comments Lovastatin Other 08/22/2024 Other reaction(s): muscle pain, hiccups Simvastatin Other reaction(s): muscle pain Medications Continuous Blood Gluc Staff Sonographer ([employer] Tierra 2 [place]) device Use as directed 1 each 023 Active empagliflozin -metFORMIN ER (Synjardy XR) 12.5-1000 MG 24 hr tabletIndicat ions:Type 2 diabetes mellitus without complication, without long-term current use of insulin ([facility]) Take 1 tablet by mouth with breakfast and with evening meal. 60 tablet 11 024 2024 Active glucose 4 g chewable tabletIndicat ions:Type 2 diabetes mellitus without complication, with long-term current use of insulin ([facility]) Chew 4 tablets (16 g) if needed for low blood sugar. 20 tablet 11 024 2024 Active aspirin (Aspirin Low Dose) 81 MG EC tabletIndicat ions:Type 2 diabetes mellitus with hyperglycemia , without long-term current use of insulin (CMS/[facility]) Take 1 tablet (81 mg) by mouth Once per day. 90 tablet 3 024 Active insulin pen needle (BD Pen Needle Luzmaria U/F) 32G x 4 mm misc Inject 1 each under the skin Once per day. 100 each 3 024 Active glucose blood (FreeStyle Precision David Test) test stripIndicati ons:Type 2 diabetes mellitus with hyperglycemia , without long-term current use of insulin (CMS/[facility]) Use to test blood sugar up to 2 times daily, as directed 50 each 5 024 Active TRUEplus Lancets 33G miscIndicatio ns:Type 2 diabetes mellitus with hyperglycemia , without long-term current use of insulin (CMS/HCC) Use to test blood sugar 2 time(s) daily 100 each 11 024 Active Continuous Glucose Sensor (FreeStyle Tierra 2 Sensor) miscIndicatio ns:Type 2 diabetes mellitus without complication, with long-term current use of insulin (CMS/[facility]) Apply 1 sensor, as directed, every 14 days for CGM 2 each 11 024 Active insulin glargine (Basaglar KwikPen) 100 UNIT/ML penIndication s:Type 2 diabetes mellitus without complication, with long-term current use of insulin (CMS/[facility]) INJECT 12 UNITS SUBCUTANEOUSLY ONCE DAILY 15 mL 5 024 Active pravastatin (Pravachol) 40 MG tabletIndicat ions:Type 2 diabetes mellitus with hyperglycemia , without long-term current use of insulin (CMS/HCC) TAKE 1 TABLET BY MOUTH EVERY EVENING 90 tablet 3 024 Active Dulaglutide (Trulicity) 4.5 MG/0.5ML solution auto-injector Inject 4.5 mg under the skin 1 (one) time per week. 024 Active sildenafil (Viagra) 50 MG tablet take 1 tablet by oral route every day as needed approximately 1 hour before sexual activity 022 2024 Discontinued(M ed list cleanup (will not trigger notification to Pharmacy)) dulaglutide (Trulicity) 4.5 MG/0.5ML solution pen-injectorI ndications:Ty pe 2 diabetes mellitus with hyperglycemia , without long-term current use of insulin (CMS/HCC) Inject 4.5 mg under the skin 1 (one) time per week. 2 mL 11 024 2024 Discontinued(M ed list cleanup (will not trigger notification to Pharmacy)) Active Problems Problem Noted Date Diagnosed Date Subungual injury of toe of right foot 02/18/2024 Assessment & Plan (02/18/2024 4:23 PM EDT): Right foot 3rd digit subungual dark hyperpigmentation extended in almost entire nail starting from bednail -does not seem blood There is no erythema,swelling, no pain w palpation ,normal pedal pulses. Normal skin temperature ,no pale extremities This is present for too long ,possible subungual lesion that will need to have r/o nevus including melanoma ? 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 Type 2 diabetes mellitus without complication Impotence 04/04/2016 History of alcohol abuse 12/06/2012 Depressive disorder 04/22/2012 Gastroesophageal reflux disease 04/22/2012 Mixed hyperlipidemia 04/22/2012 Encounters Date Type Department Care Team Description 08/22/2024 1:00 PM EST Office Visit [facility] [address] [place] [address] Maegan Robledo MD Personal history of smoking (Primary Dx); Screen for sexually transmitted diseases; Failed hearing screening 08/22/2024 Travel 08/18/2024 Telephone [facility] [address] [place] [address] Darline Leon, RN 08/16/2024 Telephone [facility] [address] [place] [address] Yen Knox, KATYA 07/26/2024 Patient Outreach [facility] [address] [place] [address] El Sommer MD Medicare Annual Wellness Visit Initial (AWV scheduled) 2024 9:15 AM EST Office Visit [facility] [address] [place] [address] El Sommer MD Type 2 diabetes mellitus without complication, with long-term current use of insulin ([facility]) (Primary Dx) 07/18/2024 Telephone [facility] [address] [place] [address] Dali Argueta [place] Chart Prep 07/12/2024 Patient Outreach [facility] [address], [place] [phone] El Sommer MD Pre-visit Planning (SDOH was completed on 09/14/2023) 06/24/2024 Patient Outreach [facility] [address] [place] [address] [employer] [facility] [employer] 06/14/2024 Telephone [facility] [address] [place] [address] El Sommer MD 05/24/2024 Refill [facility] [address] [place], [place] [phone] Kanwal Whiteside PharmD Type 2 diabetes mellitus with hyperglycemia, without long-term current use of insulin ([facility]) from Last 3 Months Immunizations Name Administration Dates Next Due Hep B, adult 09/02/2023,04/07/2023,03/11/2023 Influenza High-dose Quadriva lent Preservative Free 04/18/2022,05/27/2021 Influenza Quadrivalent Adjuvanted 03/25/2020 Influenza injectable quadriv alent IIV4 with preservative 04/28/2017,04/04/2016 Influenza injectable quadriv alent preservative free 04/07/2023,04/18/2019,04/04/2018,03/14,04/23/2015 Influenza, High Dose Seasona l, Preservative Free 04/05/2024 Influenza, IIV3, injectable 05/12/2014, 1 Influenza, Split (incl. matti fied surface antigen) 04/22/2012 Perico SARS-CoV-2 Vaccination 10/03/2020 Pfizer Covid-19 Vaccine 12+ 05/03/2024,1 08/08/2022,12/06/2021,05/13 Pfizer Covid-19 Vaccine 12+ Bivalent 07/16/2022 Pfizer Covid-19 Vaccine 12+ nolberto-sucrose ([facility] Cap) 12/06/2021 Pneumococcal Conjugate PCV 13 12/06/2021 Pneumococcal Polysaccharide PPSV23 06/22/2019, RSV Bivalent 06/22/2023 TD (adult), 2 Lf tetanus tox oid, preservative free, adsorbed 04/22/2012 Td (adult), 5 Lf tetanus tox oid, preservative free, adsorbed 07/25/2012 Tdap 01/12/2018 Zoster, Recombinant 06/08/2023,03/10/2023 Zoster, live 12/31/2015 Family History Medical History Relation Name Comments Diabetes Father Rusty Heart disease Father Rusty Hypertension Father Rusty Obesity Father Rusty Other Father Rusty bilateral BKA Stroke Father Rusty Diabetes Mother Kusum Heart disease Mother Kusum Hypertension Mother Kusum Lung disease Mother Kusum smoker Mother Kusum Relation Name Status Comments Father Rusty Mother Kusum Social History Tobacco Use Types Packs/Day Years [...] not to disclose 2021 10:17 AM EDT Last Filed Vital Signs Vital Sign Reading Time Taken Comments Blood Pressure 118/73 08/22/2024 1:07 PM EST Pulse 89 08/22/2024 1:07 PM EST Temperature 37.1 ??C (98.7 ??F) 2024 9:24 AM ES T Respiratory Rate 18 08/22/2024 1:07 PM EST Oxygen Saturation 98% 2024 9:24 AM EST Inhaled Oxygen Concentration - - Weight 69.7 kg (153 lb 9.6 oz) 08/22/2024 1:07 P M EST Height 168.9 cm (5' 6.5 ) 08/22/2024 1:07 PM EST Body Mass Index 24.42 08/22/2024 1:07 PM EST Plan of Treatment Upcoming Encounters Date Type Department Care Team (Late st Contact Info) Description 09/19/2024 10:00 AM EST Medication Management [facility] [address] [place] [address] Kanwal Whiteside, PharmD [address] [place] [address] 09/26/2024 10:00 AM EDT Office Visit [facility] OPTOMETRY [address] [place] [address] Priscilla Crowder, OD 230 [place] [address] 10/19/2024 2:15 PM EDT Office Visit [facility] [address] [place] [address] Name, MD El [facility] [place] [address] Health Maintenance Due Date Last Done Comments CT Colonography 1954 FIT DNA/Cologuard 1954 FIT 1954 FOBT 1955 Sigmoidoscopy 1954 Diabetes: Foot Exam 09/14/2024 09/14/2023, 09/14/2023, 09/14/2023, Additional history exists Diabetes: Hemoglobin A1C 12/19/2024 024, 03/24/2024, 12/08/2023, Additional history exists Diabetes: Urine Protein Screening 04/05/2025 04/05/2024, 09/14/2023, 07/22/2022, Additional history exists Lipid Panel 04/05/2025 04/05/2024, 02/18, 07/22/2022, Additional history exists Alcohol/Substance Use Screening 08/22/2025 08/22/2024 Depression Screening 08/22/2025 08/22/2024, 08/22/19 25 SDOH Screening 08/22/2025 08/22/2024 Tobacco Screening 08/22/2025 08/22/2024 Eye Exam 03/28/2026 03/28/2024, 090 03/2024, 03/28/2024, Additional history exists Colonoscopy 11/12/2026 11/12/2016 Colorectal Cancer Screening 11/12/2026 Pneumococcal Vaccine: 50+ Years (3 of 3 - PCV20 or PCV21) 12/06/2026 12/06/2021, 06/22/2019, 04/29/2012 DTaP/Tdap/Td Vaccines (2 - Td or Tdap) 01/13/2028 01/12/2018, 07/25/2012, 04/22/2012 Zoster Vaccines Completed 06/08/2023, 02/18, 12/31/2015 RSV Patients and Patients Aged 60 years or older Completed 06/22/2023 Hepatitis B Vaccines Completed 09/02/2023, [...] patient's age to complete this topic Meningococcal Vaccine Aged Out No dora brent eligible based on patient's age to complete this topic RSV under 20 months Aged Out No longe r eligible based on patient's age to complete this topic Rotavirus Vaccines Aged Out No longer eligible based on patient's age to complete this topic Goals Goal Patient Goal Type Associated Problems Recent Progress Patient-Stated? Author Hemoglobin A1c < 7 Result Component 6.9( 11:03 AM EST) No Kanwal Whiteside, Esperanza Record your blood sugar as directed Result Component No Kanwal Whiteside, Esperanza Note: Use CGM, ensuring sensor is scanned at least once every 8 hours to capture 24H data. Check BG manually, as directed. Procedures Procedure Name Priority Date/Time Associated Diagnosis Comments POCT GLUCOSE Routine 2024 9:27 AM EST Type 2 diabetes mellitus without complication, with long-term current use of insulin (CMS/[facility]) POCT GLYCATED HEMOGLOBIN, TOTAL Routine 06/20/2024 11:03 AM EST Type 2 diabetes mellitus without complication, with long-term current use of insulin (CMS/HCC) HEPATITIS C AB W/REFL TO HCV RNA, QN, PCR Routine 04/05/2024 9:35 AM EDT Need for hepatitis C screening test ALBUMIN, RANDOM URINE W/CREATININE Routine 04/05/2024 9:35 AM EDT Type 2 diabetes mellitus with hyperglycemia, without long-term current use of insulin (CMS/HCC) LIPID PANEL, STANDARD Routine 04/05/2024 9:35 AM EDT Type 2 diabetes mellitus with hyperglycemia, without long-term current use of insulin ([facility]) COLONOSCOPY Routine 11/12/2016 3:06 PM EDT from Last 3 Months or Most Recently Relevant to Health Maintenance Results * POCT Glucose (2024 9:27 AM EST) Glucose Blood, POC 118 60 - 200 mg/dL QC Media Lot # [id number] Lot# Expiration Date ,[id number] Blood Capillary blood specimen / Unknown 2024 9:27 AM EST Result Brian Sommer MD POINT OF CARE TEST ENTER/EDIT OR DERABLES Final Result * (ABNORMAL) POCT HGB A1C (06/20/2024 11:03 AM EST) Hemoglobin A1C 6.9(A) 4.0 - 6.0 % QC Media Lot # [id number] Blood 06/20/2024 11:0 3 AM EST Result Brian Sommer MD POINT OF CARE TEST ENTER/EDIT OR DERABLES Final Result * Albumin, Random Urine W/Creatinine (04/05/2024 9:35 AM EDT) Creatinine, Urine 140.23 mg/dL [facility] Microalbumin Urine 9.0 mg/L [facility] Microalbum Creatinine Ratio Ur 6.4 <30 ug/mg cr [facility] Comment:Albumin/Creatinine R atio Reference Ranges: Normal: < 30 ug/mg creatinine Microalbuminuria: 30 - 300 ug/mg creatinineClinical Albuminuria: > 300 ug/mg creatinine Urine (Urine, Random) 04/05/2024 9:35 AM EDT 04/05/2024 11:32 AM EDT Result Brian Sommer MD LAB URINE ORDERABLES Final Resul t Performing Organization Address [facility]/ZIP Co de Phone Number [facility] [address] [place] [address] [phone] * Hepatitis C Antibody with Reflex to HCV, RNA, Quantitative, Real-Time PCR (04/05/2024 9:35 AM EDT) Hepatitis C Antibody Nonreactive Nonreactive [facility] Comment:Antibodies to HCV no t detected; does not exclude early acuteHCV infection. Blood Venous blood specimen / Unknown 04/05/2024 9:35 AM EDT 04/05/2024 11:48 AM EDT El Sommer MD LAB BLOOD ORDERABLES Final Resul t Performing Organization Address [facility] Co de Phone Number [facility] [address] [place] [address] [phone] * Lipid Panel, Standard (04/05/2024 9:35 AM EDT) Triglycerides 57 <150 mg/dL [facility] Comment:Desirable Triglyceri de: less than 150 mg/dLBorderline High Triglyceride 150-199 mg/dLHigh Triglyceride: 200-499 mg/dLVery High Triglyceride: greater than or equal to 5OO mg/dL Cholesterol 137 <200 mg/dL [facility] Comment:Desirable Cholestero l: less than 200 mg/dLBorderline High Cholesterol: 200-239 mg/dLHigh Cholesterol: greater than 239 mg/dL LDL Cholesterol Calculated 81 <100 mg/dL [facility] Comment:Desirable LDL: less than 100 mg/dLNear Optimal/Above Optimal LDL: 110- 129 mg/dLBorderline High LDL: 130-159 mg/dLHigh LDL: 160-189 mg/dLVery High LDL: greater than or equal to 190 mg/dL HDL Cholesterol 45 >40 mg/dL [facility] Comment:Desirable HDL: great er than 40 mg/dL Note: This HDL assay may give artificially low results in patients with liver disease. Blood Venous blood specimen / Unknown 04/05/2024 9:35 AM EDT 04/05/2024 11:48 AM EDT us El Sommer MD LAB BLOOD ORDERABLES Final Resul t [facility] [address] [place] [address] [phone] * Hm Colonoscopy (11/12/2016 3:06 PM EDT) Colonoscopy Normal Normal Narrative Teresita Helms - 11/12/2016 3:06 PM EDT Recommended 10 year follow up us Historical Provider HEALTH MAINTENANCE Final Result from Last 3 Months or Most Recently Relevant to Health Maintenance Insurance [facility] STANDARD MEDICARE Care Teams Swimming Pool Service Technician Relationship Specialty Start Date End Date Name, MD El [address] [place] [address] PCP - General Family Medicine 10/24/15 Kanwal Whiteside PharmD [address] [place] [address] Pharmacist Internal Medicine 01/28/23 Priscilla Crowder OD [address] [place] [address] Optometry 08/18/24 John Ervin DPM [address] [place] [address] Podiatry 02/18/24
[2024-08-23 08:37] LABS: HIV AB/AG Nonreactive (Nonreactive); HIV Num 1 0.06 S/CO (0.00-0.99)
== END 2024-08-22 14:30 | disposition home or self-care (01) ==
LOC: HO.HHCL 14:29
PROVIDERS: Visit Provider Family Medicine
DX: Z11.3 Encounter for screening for infections with a predominantly sexual mode of transmission (principal); Z11.4 Encounter for screening for human immunodeficiency virus [HIV]
CPT/HCPCS: 36415; 87389

== ENCOUNTER 2024-09-08 09:31 | Outpatient (REF) | payer MEDICARE, MEDICAID, SELFPAY ==
--- OUTSIDE RECORDS SUMMARY | 2024-09-08 10:19 | XMS_ITS | Encounter Summary ---
Author Organization [employer] Address 75 [facility] 7t [place] [address] Care Team Providers Care Diabetes Clinical Manager Name Role Phone Name, El TURNER Primary Care Provider [phone] Kanwal Whiteside PharmD Unavailable [phone] Priscilla Crowder OD Unavailable [phone] John Ervin DPM Unavailable [phone] Marilu Castro MD Unavailable [phone] Encounter Details Date Type Department Care Team (Late st Contact Info) Description 08/18/2024 Telephone [facility] MEDICINE 230 [place] [address] Darline Leon RN Social History Tobacco Use [...] answer, left voicemail to return call to [facility]. documented in this encounter Plan of Treatment Upcoming Encounters Date Type Department Care Team (Late st Contact Info) Description 09/19/2024 10:00 AM EST Medication Management [facility] MEDICINE [address] [place] [address] Kanwal Whiteside, PharmD 230 [place] [address] 09/26/2024 10:00 AM EDT Office Visit [facility] OPTOMETRY [address] [place] [address] Vel, Priscilla, OD 230 [place] [address] 10/19/2024 2:15 PM EDT Office Visit [facility] MEDICINE 230 [place] [address] Name, MD El 230 [place] [address] documented as of this encounter Goals Goal Patient Goal Type Associated Problems Recent Progress Patient-Stated? Author Hemoglobin A1c < 7 Result Component 6.9( 4 11:03 AM EST) No Kanwal Whiteside PharmD [...] documented as of this encounter Care Teams Diabetes Clinical Manager Relationship Specialty Start Date End Date Name, MD El 230 [place] [address] PCP - General Family Medicine 10/24/15 Kanwal Whiteside PharmD [address] [place] [address] Pharmacist Internal Medicine 01/28/23 Priscilla Crowder OD 230 [place] [address] Optometry 08/18/24 John Ervin DPM [address] [place] [address] Podiatry 02/18/24 Marilu Castro MD [address] [place] [address] Family Physician Dermatology 02/18/24 08/21/24 documented as of this encounter
--- OUTSIDE RECORDS SUMMARY | 2024-09-08 10:19 | XMS_ITS | Encounter Summary ---
Author Organization [employer] Address 75 [facility] 7t [place] [address] Care Team Providers Care Client Relation Specialist Name Role Phone Name, El TURNER Primary Care Provider PuKanwal lopez PharmD Unavailable VelPriscilla blair OD Unavailable [phone] John Ervin DPM Unavailable Reason for Visit * Reason Comments Med Refill Encounter Details Date Type Department Care Team (Late st Contact Info) Description 09/08/2024 Refill [facility] MEDICINE 230 [place] [address] Puia, Kanwal, PharmD 230 [place] [address] Type 2 diabetes mellitus without complication, without long-term current use of insulin ([facility]) Social History Tobacco Use Types [...] the past 12 months, has t he [employer], gas, oil or water company threatened to [...] Description 09/19/2024 10:00 AM EST Medication Management [facility] MEDICINE [address] [place] [address] Kanwal Whiteside, PharmD 230 [place] [address] 09/26/2024 10:00 AM EDT Office Visit [facility] OPTOMETRY [address] [place] [address] Priscilla Crowder, OD 230 [place] [address] 10/19/2024 2:15 PM EDT Office Visit [facility] MEDICINE [address] [place] [address] Name, MD El 230 [place] [address] documented as of this encounter Goals Goal [...] complication, without long-term current use of insulin ([facility]) documented in this encounter Additional Health Concerns Assessment Noted Time PHQ-9 Depression Total Score: 1 08/22/19 25 1:15 PM EST documented as of this encounter Care Teams Client Relation Specialist Relationship Specialty Start Date End Date Name, MD El 230 [place] [address] PCP - General Family Medicine 10/24/15 Kanwal Whiteside PharmD 230 [place] [address] Pharmacist Internal Medicine 01/28/23 Priscilla Crowder OD 230 [place] [address] Optometry 08/18/24 John Ervin DPM [address] [place] [address] Podiatry 02/18/24 documented as of this encounter
--- OUTSIDE RECORDS SUMMARY | 2024-09-08 10:19 | XMS_ITS | Encounter Summary ---
Author Organization [employer] Address 75 [facility] 7t [place] [address] Care Team Providers Care Suppression Crew Leader Name Role Phone Name, El TURNER Primary Care Provider [phone] Kanwal Whiteside PharmD Unavailable [phone] Priscilla Crowder OD Unavailable [phone] John Ervin DPM Unavailable [phone] Encounter Details Date Type Department Care Team [...] Description 09/19/2024 10:00 AM EST Medication Management [facility] MEDICINE [address] [place] [address] Kanwal Whiteside PharmD 230 [place] [address] 09/26/2024 10:00 AM EDT Office Visit [facility] OPTOMETRY [address] [place] [address] Vel, Priscilla, OD 230 [place] [address] 10/19/2024 2:15 PM EDT Office Visit [facility] MEDICINE [address] [place] [address] Name, MD El 230 [place] [address] documented as of this encounter Goals Goal [...] documented as of this encounter Care Teams Suppression Crew Leader Relationship Specialty Start Date End Date Name, MD El 230 [place] [address] PCP - General Family Medicine 10/24/15 Kanwal Whiteside PharmD 230 [place] [address] Pharmacist Internal Medicine 01/28/23 Priscilla Crowder OD 230 [place] [address] Optometry 08/18/24 John Ervin DPM [address] [place] [address] Podiatry 02/18/24 documented as of this encounter
--- OUTSIDE RECORDS SUMMARY | 2024-09-08 10:19 | XMS_ITS | Encounter Summary ---
Author Organization [employer] Address 75 [facility] 7t [place] [address] Care Team Providers Care Auto Air Conditioning Installer Name Role Phone Name, El TURNER Primary Care Provider Kanwal Whiteside PharmD Unavailable [phone] Priscilla Crowder OD Unavailable [phone] John Ervin DPM Unavailable [phone] Reason for Referral * Consultation (Routine) - Authorized Specialty Diagnoses / Procedures Referred By Zaira macario Referred To Contact Audiology Diagnoses Failed hearing screening Maegan Robledo MD [address] [place] [address] Phone: tel: fax: [facility] [address] [place] [address] Phone: tel: fax: Referral ID Status Reason Start Date Expiration Date Visits Requested Visits Authorized [id number] Authorized Specialty Services Required 08/22/2024 08/22/2025 1 1 * Imaging (Routine) - Authorized Specialty Diagnoses / Procedures Referred By Zaira macario Referred To Contact Cardiology Diagnoses Personal history of smoking Procedures US AAA Screening Maegan Robledo MD [address] [place] [address] Phone: tel: fax: [facility] [address] [place] [address] Phone: tel: fax: Referral ID Status Reason Start Date Expiration Date Visits Requested Visits Authorized [id number] Authorized Perform Procedure 08/22/2024 08/22/2025 1 1 Reason for Visit * Reason Comments AWV Encounter Details Date Type Department Care Team (Late st Contact Info) Description 08/22/2024 1:00 PM EST Office Visit [facility] MEDICINE 230 [place] [address] Maegan Robledo MD [address] [place] [address] Personal history of smoking (Primary Dx); Screen [...] Wellness Visit. Preferred language for medical information: Mauritanian Objective Vitals: 08/22/24 1307 BP: 118/73 BP [...] 90 tablet, Rfl: 3 Continuous Blood Gluc Glazing Department Supervisor ([place]) device, Use as directed, Disp: 1 each, Rfl: 0 Continuous Glucose Sensor (FreeStyle Tierra 2 Sensor) misc, Apply 1 sensor, as directed, every 14 [...] has the electric, gas, oil or water company threatened [...] independent Transferring: independent Continence: independent Feeding: independent TRUSTEE OF ESTATE: No Fall Risk Assessment: [x] Low risk [...] Agent(s): Health Care Proxy paperwork is incomplete. [place] Medical Orders for Life-Sustaining Treatment (MOLST) is [...] history of smoking - Primary Relevant Orders US AAA Screening Screen for sexually transmitted diseases [...] Description 09/19/2024 10:00 AM EST Medication Management [facility] MEDICINE [address] [place] [address] Kanwal Whiteside, PharmD 230 [place] [address] 09/26/2024 10:00 AM EDT Office Visit [facility] OPTOMETRY [address] [place] [address] Vel, Priscilla, OD [address] [place] [address] 10/19/2024 2:15 PM EDT Office Visit [facility] MEDICINE 230 [place] [address] Name, MD El [address] [place] [address] Scheduled Referrals Name Type Priority Associated Diagnoses [...] as directed Result Component No Kanwal Whiteside, PharmD Note: Use CGM, ensuring sensor is scanned at least once every 8 hours to capture 24H data. Check BG manually, as directed. documented as of this encounter Procedures Procedure Name Priority Date/Time Associated Diagnosis Comments HIV 1/2 ANTIGEN/ANTIBODY, FOURTH GENERATION W/RFL Routine 08/22/2024 2:31 PM EST Screen for sexually transmitted diseases documented in this encounter Results * HIV-1/2 Antigen and Antibodies, Fourth Generation, with Reflexes (08/22/2024 2:31 PM EST) Pathologist [facility] [place] HIV AB/AG Nonreactive Nonreactive [facility] Comment:HIV-1 p24 Ag and/or HIV-1/HIV-2 Ab not detected.A test result that is nonreactive does not exclude thepossibility of exposure to or infection with HIV-1 and/orHIV-2. Nonreactive results in this assay for individualswith prior exposure to HIV-1 and/or HIV-2 may be due toantigen and antibody levels that are below the limit ofdetection of this assay.The Plan A Drink HIV Ag/Ab Combo assay result andsupplemental assay results should be interpreted inconjunction with the patient's clinical presentation,history and other laboratory results. If the results areinconsistent with clinical evidence, additional testing issuggested to confirm the result. Blood Venous blood specimen / Unknown 08/22/2024 2:31 PM EST 08/22/2024 4:00 PM EST Maegan Robledo MD LAB BLOOD ORDERABLES Final R esult [facility] [address] [place] [phone] documented in this encounter Visit Diagnoses Diagnosis Personal history [...] documented as of this encounter Care Teams Auto Air Conditioning Installer Relationship Specialty Start Date End Date Name, MD El 230 [place] [address] PCP - General Family Medicine 10/24/15 Kanwal Whiteside PharmD 230 [place] [address] Pharmacist Internal Medicine 01/28/23 Prsicilla Crowder OD 230 [place] [address] Optometry 08/18/24 John Ervin DPM [address] [place] [address] Podiatry 02/18/24 documented as of this encounter
--- OUTSIDE RECORDS SUMMARY | 2024-09-08 10:19 | XMS_ITS | Clinical Summary ---
Author Organization [facility] Address 175 [place] [address] Phone Care Team Providers Care Orthopedic Physician Name Role Phone Alycia Ruelas MD Primary Care Pro vider Allergies Active Allergy Reactions Criticality Noted Date Comments Lovastatin 03/31/2024 Muscle pain Simvastatin 03/31/2024 Muscle pain Medications aspirin 81 mg chewable tablet Chew 1 [...] into the skin once a week. Active empagliflozin-m etformin (Synjardy XR) 12.5-1,000 mg tablet, IR - [...] 9:15 AM EST Office Visit Orthopedic Surgery [facility] [address] [address] John Ervin, DPM Dermatophytosis of nail [...] mellitus) (CMS/HCC) DX:T2DM (type 2 diabetes mellitus) ([facility]) Hyperlipidemia DX:Hyperlipidemi a Social History Tobacco Use Types Packs/Day Years Used Date Smoking Tobacco: Never Assessed Sex and Gender Information Value Date Recorded Sex Assigned at Not on file Legal Sex Male 11:42 AM EDT Gender Identity Not on file Sexual Orientation Not on file Obstetrics History Last Filed [...] Diabetes: Annual Urine Albumin-Creatinine Ratio (uACR) 04/29/2024 Depression Screening 09/14/2024 09/14/2023 Diabetes: Blood Sugar Control Test (HGBA1C) 12/19/2024 06/20/2024 Pneumococcal Vaccine: 50+ Years (3 of 3 - PCV20 or PCV21) 12/06/2026 12/06/2021, 06/22/2019, 04/29/2012 DTaP,Tdap,and Td Vaccines (4 - Td or [...] patient's age to complete this topic Meningococcal B Vacine Aged Out No lo nger eligible based on patient's age to complete this topic RSV Immunization Patients Under 20 months Aged Out No longer eligible based on patient's age to complete this topic Varicella Vaccines Aged Out No longer eligible based on patient's age to complete this topic Insurance MEDICARE MEDICAID - [place] Care Teams Orthopedic Physician Relationship Specialty Start Date End Date Alycia Ruelas MD 9 [facility] [address] [place] [id number] PCP - General 02/23/24
--- OUTSIDE RECORDS SUMMARY | 2024-09-08 10:19 | XMS_ITS | Encounter Summary ---
Author Organization [employer] Address 75 [facility] 7t [place] [address] Care Team Providers Care Real Estate Acquisition Analyst Name Role Phone Name, El TURNER Primary Care Provider [phone] Kanwal Whiteside PharmD Unavailable [phone] Priscilla Crowder OD Unavailable [phone] John Ervin DPM Unavailable [phone] Marilu Castro MD Unavailable [phone] Reason for Visit * Reason Comments Med Refill Encounter Details Date Type Department Care Team (Late st Contact Info) Description 11/01/2023 Refill [facility] MEDICINE 230 [place], [place] [phone] Kanwal Whiteside, PharmD 230 [place] [address] Type 2 diabetes mellitus with hyperglycemia, without long-term current use of insulin ([facility]) Social History Tobacco Use Types [...] Description 09/19/2024 10:00 AM EST Medication Management [facility] MEDICINE [address] [place] [address] Kanwal Whiteside, PharmD 230 [place] [address] 09/26/2024 10:00 AM EDT Office Visit [facility] OPTOMETRY [address] [place] [address] Vel, Priscilla, OD 230 [place] [address] 10/19/2024 2:15 PM EDT Office Visit [facility] MEDICINE [address] [place] [address] Name, MD El [address] [place] [address] documented as of this encounter Goals Goal [...] hyperglycemia, without long-term current use of insulin ([facility]) documented in this encounter Additional Health Concerns Assessment Noted Time PHQ-9 Depression Total Score: 0 09/14/19 24 3:42 PM EST documented as of this encounter Care Teams Real Estate Acquisition Analyst Relationship Specialty Start Date End Date Name, MD El [address] [place] [address] PCP - General Family Medicine 10/24/15 Kanwal Whiteside PharmD [address] [place] [address] Pharmacist Internal Medicine 01/28/23 Priscilla Crowder OD 230 [place] [address] Optometry 08/18/24 John Ervin DPM [address] [place] [address] Podiatry 02/18/24 Marilu Castro MD [address] [place] [address] Family Physician Dermatology 02/18/24 08/21/24 documented as of this encounter
--- OUTSIDE RECORDS SUMMARY | 2024-09-08 10:19 | XMS_ITS | Encounter Summary ---
Author Organization [employer] Address 75 [facility] 7t [place] [address] Care Team Providers Care Academic Affairs Assistant Name Role Phone Name, El TURNER Primary Care Provider [phone] Kanwal Whiteside PharmD Unavailable [phone] John Ervin DPM Unavailable [phone] Marilu Castro MD Unavailable [phone] Encounter Details Date Type Department Care Team (Late st Contact Info) Description 08/16/2024 Telephone [facility] MEDICINE 230 [place] [address] Yen Knox, RN Social History Tobacco Use Types [...] PM EST Med B form faxed to [facility] and confirmation received. Form placed in H.I.M scanning bin. documented in this encounter Plan of Treatment Upcoming Encounters Date Type Department Care Team (Late st Contact Info) Description 09/19/2024 10:00 AM EST Medication Management [facility] MEDICINE [address] [place] [address] Kanwal Whiteside, PharmD 230 [place] [address] 09/26/2024 10:00 AM EDT Office Visit [facility] OPTOMETRY [address] [place] [address] Priscilla Crowder, OD 230 [place] [address] 10/19/2024 2:15 PM EDT Office Visit [facility] MEDICINE [address] [place] [address] Name, MD El [address] [place] [address] documented as of this encounter Goals Goal [...] documented as of this encounter Care Teams Academic Affairs Assistant Relationship Specialty Start Date End Date Name, MD El [address] [place] [address] PCP - General Family Medicine 10/24/15 Kanwal Whiteside PharmD 230 [place] [address] Pharmacist Internal Medicine 01/28/23 John Ervin DPM [address] [address] Podiatry 02/18/24 Marilu Castro MD 505 [place] [address] Family Physician Dermatology 02/18/24 08/21/24 documented as of this encounter
--- OUTSIDE RECORDS SUMMARY | 2024-09-08 10:19 | XMS_ITS | Encounter Summary ---
Author Organization [employer] Address 75 [facility] 7t [place] [address] Care Team Providers Care Medical Secretary Teacher Name Role Phone Name, El TURNER Primary Care Provider Kanwal Whiteside PharmD Unavailable [phone] Priscilla Crowder OD Unavailable [phone] John Ervin DPM Unavailable [phone] Marilu Castro MD Unavailable [phone] Reason for Visit * Reason Comments Med Refill Encounter Details Date Type Department Care Team (Late st Contact Info) Description 08/19/2022 Refill [facility] MEDICINE [address] [place] [address] [phone] Name, MD El [address] [place] [phone] Type 2 diabetes mellitus without complication, without long-term current use of insulin ([facility]) Social History Tobacco Use Types Packs/Day Years [...] 10:00 AM EST Medication Management [facility] MEDICINE 230 [place] [address] Kanwal Whiteside PharmD 230 [place] [address] 09/26/2024 10:00 AM EDT Office Visit [facility] OPTOMETRY [address] [place] [address] Priscilla Crowder, OD 230 [place] [address] 10/19/2024 2:15 PM EDT Office Visit [facility] MEDICINE 230 [place] [address] Name, MD El Just[place], [place] documented as of this encounter Visit Diagnoses Diagnosis Type 2 diabetes mellitus without complication, without long-term current use of insulin ([facility]) documented in this encounter Additional Health Concerns Assessment Noted Time PHQ-9 Depression Total Score: 0 07/16/20 22 2:17 PM EST documented as of this encounter Care Teams Medical Secretary Teacher Relationship Specialty Start Date End Date Name, MD El [place], [place] PCP - General Family Medicine 10/24/15 Kanwal Whiteside PharmD Justine [place], [place] Pharmacist Internal Medicine 01/28/23 Priscilla Crowder, OD [address] [place] [address] Optometry 08/18/24 John Ervin DPM [address] [place] [address] Podiatry 02/18/24 Marilu Castro MD [address] [place] [address] Family Physician Dermatology 02/18/24 08/21/24 documented as of this encounter
--- OUTSIDE RECORDS SUMMARY | 2024-09-08 10:20 | XMS_ITS | Encounter Summary ---
Author Organization [employer] Address 75 [facility] 7t [place] [address] Care Team Providers Care Audiologist Name Role Phone Name, El TURNER Primary Care Provider Kanwal Whiteside PharmD Unavailable [phone] Priscilla Crowder OD Unavailable [phone] John Ervin DPM Unavailable Marilu Castro MD Unavailable [phone] Encounter Details Date Type Department Care Team (Late st Contact Info) Description 12/18/2022 Abstract [facility] MEDICINE 230 [place], [place] [phone] Name, MD El [address] [place], [place] [phone] Social History Tobacco Use Types Packs/Day Years [...] Description 09/19/2024 10:00 AM EST Medication Management [facility] [address] [place] [address] Kanwal Whiteside PharmD [address] [place] [address] 09/26/2024 10:00 AM EDT Office Visit [facility] OPTOMETRY [address] [place] [address] Vel, Priscilla, OD 230 [place] [address] 10/19/2024 2:15 PM EDT Office Visit [facility] MEDICINE [address] [place] [address] Name, MD El [address] [place] [address] documented as of this encounter Procedures Procedure [...] documented as of this encounter Care Teams Audiologist Relationship Specialty Start Date End Date Name, MD [place] [address] PCP - General Family Medicine 10/24/15 Kanwal Whiteside, Esperanza [address] [place] [address] Pharmacist Internal Medicine 01/28/23 Priscilla Crowder OD 230 [place] [address] Optometry 08/18/24 John Ervin DPM [address] [address] Podiatry 02/18/24 Marilu Castro MD [address] [place] [address] Family Physician Dermatology 02/18/24 08/21/24 documented as of this encounter
--- OUTSIDE RECORDS SUMMARY | 2024-09-08 10:20 | XMS_ITS | Clinical Summary ---
Author Organization [employer] Address [address] [facility] 7t [place] [address] Care Team Providers Care Corporate Strategy Analyst Name Role Phone Name, El TURNER Primary Care Provider Kanwal Whiteside PharmD Unavailable Priscilla Crowder OD Unavailable John Ervin DPM Unavailable [phone] Allergies Active Allergy Reactions Criticality Noted Date Comments Lovastatin Other 08/22/2024 Other reaction(s): muscle pain, hiccups Simvastatin Other reaction(s): muscle pain Medications Continuous Blood Gluc Insurance Counselor ([employer]ip[employer]St[employer] Tierra 2 Paige) device Use as directed 1 each 3 Active empagliflozin- metFORMIN ER (Synjardy XR) 12.5-1000 MG 24 hr tabletIndicati ons:Type 2 diabetes mellitus without complication, without long-term current use of insulin (CMS/[facility]) Take 1 tablet by mouth with breakfast and with evening meal. 60 tablet 11 4 Active glucose 4 g chewable tabletIndicati ons:Type 2 diabetes mellitus without complication, with long-term current use of insulin (CMS/[facility]) Chew 4 tablets (16 g) if needed for low blood sugar. 20 tablet 11 4 025 Active aspirin (Aspirin Low Dose) 81 MG EC tabletIndicati ons:Type 2 diabetes mellitus with hyperglycemia, without long-term current use of insulin (CMS/HCC) Take 1 tablet (81 mg) by mouth Once per day. 90 tablet 3 4 Active insulin pen needle (BD Pen Needle Luzmaria U/F) 32G x 4 mm misc Inject 1 each under the skin Once per day. 100 each 3 4 Active glucose blood (FreeStyle Precision David Test) test stripIndicatio ns:Type 2 diabetes mellitus with hyperglycemia, without long-term current use of insulin ([facility]) Use to test blood sugar up to 2 times daily, as directed 50 each 5 4 Active TRUEplus Lancets 33G miscIndication s:Type 2 diabetes mellitus with hyperglycemia, without long-term current use of insulin ([facility]) Use to test blood sugar 2 time(s) daily 100 each 11 4 Active Continuous Glucose Sensor (FreeStyle Tierra 2 Sensor) miscIndication s:Type 2 diabetes mellitus without complication, with long-term current use of insulin ([facility]) Apply 1 sensor, as directed, every 14 days for CGM 2 each 11 4 Active insulin glargine (Basaglar KwikPen) 100 UNIT/ML penIndications :Type 2 diabetes mellitus without complication, with long-term current use of insulin ([facility]) INJECT 12 UNITS SUBCUTANEOUSLY ONCE DAILY 15 mL 5 4 Active pravastatin (Pravachol) 40 MG tabletIndicati ons:Type 2 diabetes mellitus with hyperglycemia, without long-term current use of insulin ([facility]) TAKE 1 TABLET BY MOUTH EVERY EVENING 90 tablet 3 4 Active Dulaglutide (Trulicity) 4.5 MG/0.5ML solution auto-injector Inject 4.5 mg under the skin 1 (one) time per week. 4 Active Active Problems Problem Noted Date Diagnosed [...] and symptoms discussed -referred today STAT to milk sampler and post hole digger-request derm [place] to help w getting as [...] Encounters Date Type Department Care Team Description 09/08/2024 Refill [facility] [address] [place] [id number] Kanwal Whiteside PharmD Type 2 diabetes mellitus without complication, without long-term current use of insulin (CMS/HCC) 08/22/2024 1:00 PM EST Office Visit [address] [address] Maegan Robledo MD Personal history of smoking (Primary Dx); Screen for sexually transmitted diseases; Failed hearing screening 08/22/2024 Travel 08/18/[address] [address] Darline Leon, RN 08/16/[address] [address] Yen Knox, KATYA 07/26/2024 Patient Outreach [address] [address] El Sommer MD Medicare Annual Wellness Visit Initial (AWV scheduled) 2024 9:15 AM EST Office Visit [address] [address] El Sommer MD Type 2 diabetes mellitus without complication, with long-term current use of insulin (CMS/HCC) (Primary Dx) 07/18/[address] [address] Dali Argueta [place] Chart Prep 07/12/2024 Patient Outreach [facility] [address] [place], [place] [phone] El Sommer MD Pre-visit Planning (SDOH was completed on 09/14/2023) 06/24/2024 Patient Outreach [facility] [address] [place] [address] [employer] [facility] 06/14/2024 Telephone [facility] [address] [place] [address] Name, MD El from Last 3 Months Immunizations Name Administration [...] Father Rusty Hypertension Father Rusty Obesity Father Ursty Other Father Rusty bilateral BKA Stroke Father [...] 37.1 ??C (98.7 ??F) 2024 9:[address] Respiratory Rate 18 08/22/2024 1:07 PM EST [...] Description 09/19/2024 10:00 AM EST Medication Management [facility] [address] [place] [address] Kanwal Whiteside, PharmD [address] [place] [address] 09/26/2024 10:00 AM EDT Office Visit [facility] [address] [place] [address] Vel, Priscilla, OD [address] [place] [address] 10/19/2024 2:15 PM EDT Office Visit [facility] [address] [place] [address] Name, MD El [address] [place] [address] Health Maintenance Due Date Last Done Comments [...] Screening 08/22/2025 08/22/2024 Eye Exam 03/28/2026 03/28/2024, 03/2024, 03/28/2024, Additional history exists Colonoscopy 11/12/2026 [...] PM EST Screen for sexually transmitted diseases POCT GLUCOSE Routine 2024 9:27 AM EST Type 2 diabetes mellitus without complication, with long-term current use of insulin (CMS/HCC) POCT GLYCATED HEMOGLOBIN, TOTAL Routine 06/20/2024 11:03 [...] without long-term current use of insulin (CMS/HCC) HM COLONOSCOPY Routine 11/12/2016 3:06 PM EDT from Last 3 Months or Most Recently Relevant to Health Maintenance Results * HIV-1/2 Antigen and Antibodies, Fourth Generation, with Reflexes (08/22/2024 2:31 PM EST) HIV AB/AG Nonreactive Nonreactive [facility] Comment:HIV-1 p24 Ag and/or HIV-1/HIV-2 Ab not detected.A test result that is nonreactive does not exclude thepossibility of exposure to or infection with HIV-1 and/orHIV-2. Nonreactive results in this assay for individualswith prior exposure to HIV-1 and/or HIV-2 may be due toantigen and antibody levels that are below the limit ofdetection of this assay.The [employer] HIV Ag/Ab Combo assay result andsupplemental assay results should be interpreted inconjunction with the patient's clinical presentation,history and other laboratory results. If the results areinconsistent with clinical evidence, additional testing issuggested to confirm the result. Blood Venous blood specimen / Unknown 08/22/2024 2:31 PM EST 08/22/2024 4:00 PM EST Maegan Robledo MD LAB BLOOD ORDERABLES Final R esult [facility] [address] [place] [address] [phone] * POCT Glucose (2024 9:27 AM EST) Pathologist [facility] Glucose Blood, POC 118 60 - 200 mg/dL QC Media Lot # [id number] Lot# Expiration Date Blood Capillary blood specimen / Unknown 2024 9:27 AM EST us El Sommer MD POINT OF CARE TEST ENTER/EDIT OR DERABLES Final Result * (ABNORMAL) POCT HGB A1C (06/20/2024 11:03 AM EST) Pathologist [facility] Hemoglobin A1C 6.9(A) 4.0 - 6.0 % QC Media Lot # [id number] Blood 06/20/2024 11:0 3 AM EST us El Sommer MD POINT OF CARE TEST ENTER/EDIT OR DERABLES Final Result * Albumin, Random Urine W/Creatinine (04/05/2024 9:35 AM EDT) Creatinine, Urine 140.23 mg/dL [facility] Microalbumin Urine 9.0 mg/L [facility] Microalbum Creatinine Ratio Ur 6.4 <30 ug/mg cr [facility] Comment:Albumin/Creatinine R atio Reference Ranges: Normal: < 30 ug/mg creatinine Microalbuminuria: 30 - 300 ug/mg creatinineClinical Albuminuria: > 300 ug/mg creatinine Urine (Urine, Random) 04/05/2024 9:35 AM EDT 04/05/2024 11:32 AM EDT us El Sommer MD LAB URINE ORDERABLES Final Resul t Performing Organization Address [facility] Co de Phone Number [facility] [address] [place] [phone] * Hepatitis C Antibody with Reflex to HCV, RNA, Quantitative, Real-Time PCR (04/05/2024 9:35 AM EDT) Pathologist [facility] Hepatitis C Antibody Nonreactive Nonreactive [facility] Comment:Antibodies to HCV no t detected; does not exclude early acuteHCV infection. Blood Venous blood specimen / Unknown 04/05/2024 9:35 AM EDT 04/05/2024 11:48 AM EDT us El Sommer MD LAB BLOOD ORDERABLES Final Resul t Performing Organization Address [facility] Co de Phone Number [facility] [address] [place] [phone] * Lipid Panel, Standard (04/05/2024 9:35 AM EDT) Triglycerides 57 <150 mg/dL [facility] Comment:Desirable Triglyceri de: less than 150 mg/dLBorderline High Triglyceride 150-199 mg/dLHigh Triglyceride: 200-499 mg/dLVery High Triglyceride: greater than or equal to 5OO mg/dL Cholesterol 137 <200 mg/dL [facility] Comment:Desirable Cholestero l: less than 200 mg/dLBorderline High Cholesterol: 200-239 mg/dLHigh Cholesterol: greater than 239 mg/dL LDL Cholesterol Calculated 81 <100 mg/dL [facility] Comment:Desirable LDL: less than 100 mg/dLNear Optimal/Above Optimal LDL: 110- 129 mg/dLBorderline High LDL: 130-159 mg/dLHigh LDL: 160-189 mg/dLVery High LDL: greater than or equal to 190 mg/dL HDL Cholesterol 45 >40 mg/dL [facility] Comment:Desirable HDL: great er than 40 mg/dL Note: This HDL assay may give artificially low results in patients with liver disease. Blood Venous blood specimen / Unknown 04/05/2024 9:35 AM EDT 04/05/2024 11:48 AM EDT El Name LAB BLOOD ORDERABLES Final Resul t [facility] [address] [place], [place] [phone] * Hm Colonoscopy (11/12/2016 3:06 PM EDT) Colonoscopy Normal Normal Narrative Teresita Helms - 11/12/2016 3:06 PM EDT Recommended 10 year follow up Historical Provider HEALTH MAINTENANCE Final Result from Last 3 Months or Most Recently Relevant to Health Maintenance Insurance [facility] [employer] MEDICARE Care Teams Corporate Strategy Analyst Relationship Specialty Start Date End Date Name, MD El [address] [place] [address] PCP - General Family Medicine 10/24/15 Kanwal Whiteside PharmD [address] [place], [place] Pharmacist Internal Medicine 01/28/23 Priscilla Crowder OD [address] [place] [address] Optometry 08/18/24 John Ervin DPM [address] [address] Podiatry 02/18/24
== END 2024-09-08 09:32 | disposition home or self-care (01) ==
LOC: HO.SH 09:31
PROVIDERS: Visit Provider Family Medicine
DX: Z01.118 Encounter for examination of ears and hearing with other abnormal findings (principal); H90.3 Sensorineural hearing loss, bilateral
CPT/HCPCS: 92557

== ENCOUNTER 2025-02-15 09:24 | Outpatient (REF) | payer MEDICARE, MEDICAID, SELFPAY ==
--- OUTSIDE RECORDS SUMMARY | 2025-02-15 09:54 | XMS_ITS | Patient Health Record ---
Author Organization [facility] Address [address] [place] [address] Care Team Providers Care Inspector Penetrant Name Role Phone Hugo Camejo MD, Hernando Primary Care Provide r Unavailable Andres Luna Unavailable [phone] Reason For Referral No Information Medications Medication SIG (Take, Route, Fr equency, Duration) Notes Start Date End Date Status Aspirin Active Fish Oil Active Mebendazole 100 MG as directed Orally U se 1 tablet today, then repeat with another tablet in 2 weeks for 14 days 07/08/2011 Ac tive Omeprazole Active Terazosin HCl Active Albendazole 200 MG 2 tablets Orally onc e on day # 1, then repeat in 2 weeks for for 2 doses 07/14/2011 Active MoviPrep 100 GM as directed Orally 05/27/201107/2024 Active Problems Problem Type SNOMED Code ICD Code Onset Dates Problem Status W/U Status Risk Notes Problem Atrophic gastritis (19599873) Atrophic gastritis without mention of hemorrhage (535.10) Active confirmed Problem History of polyp of colon (situation) (180698475) Personal history of colonic polyps (V12.72) Active confirmed Problem Screening for malignant neoplasm of colon (944808508) Special screening for malignant neoplasms, colon (V76.51) Active confirmed Plan Of Treatment Future Test Test Name Order Date COLONOSCOPY 05/27/2011 Insurance Providers Payer Name Payer Address Payer Phone Subscriber Number Group Number Insured Name Patient Relationship to Insured Coverage Start Date Coverage End Date MEDICAID FACILITY DO NOT USE [place] [place] [phone] [id number] STIVEN CARRIZALES Self - patient is the insured [facility] Credible Plan [address] [place] [phone] [id number] ZURAWSKI , STIVEN Self - patient is the insured Medical (General) History Medical History History ICD Code gastroesophageal reflux and gastritis as above colon polyps or Denies DC,DM,CVA,Lung disease,renal dise ase Surgical History Surgery Date(Month/Year) none
--- OUTSIDE RECORDS SUMMARY | 2025-02-15 09:54 | XMS_ITS | Clinical Summary ---
Author Organization [facility] Address [address] [place] [address] Phone Care Team Providers Care Ballistic Technician Name Role Phone Alycia Ruelas MD Primary [...] injury of toe of right foot 03/31/2024 Immunizations Name Administration Dates Next Due Moderna SARS-CoV-2 COVID-19, mRNA, LNP-S, preservative free 07/16/2022 Medical History Medical History Date Comments T2DM (type 2 diabetes mellit us) (CMS/HCC V24, CMS/HCC V28) DX:T2DM (type 2 diabetes yuliana litus) ([facility]) Hyperlipidemia DX:Hyperlipidemi a Social History Tobacco [...] Urine Albumin-Creatinine Ratio (uACR) 04/29/2024 Depression Screening 07/20/2024 COVID-19 Vaccine ( season) 2024 05/03/2024, 06/08/2023, 07/16/2022, Additional history exists Diabetes: Blood Sugar Control Test (HGBA1C) 12/19/2024 06/20/2024 Influenza Vaccine (#1) 2025 , 04/07/2023, 04/18/2022, Additional history exists Pneumococcal Vaccine: 50+ Years (3 of 3 - PCV20 or PCV21) 12/06/2026 12/06/2021, 06/22/2019, 04/29/2012 DTaP,Tdap,and Td Vaccines (4 - Td or Tdap) 01/13/2028 01/12/2018, 07/25/2012, 04/22/2012 Cholesterol Screening (Lipid Panel) 04/05/2029 04/05/2024 Zoster Vaccines Completed 06/08/2023, 02/18, 12/31/2015 RSV Immunization Adult Patients Completed 06/22/2023 Hepatitis B Vaccines Completed 09/02/2023, 04/07/2023, 03/11/2023 Hepatitis C Screening Completed 04/05/2024 HIB Vaccines Aged Out No longer eligi [...] age to complete this topic Meningococcal B Vaccine Aged Out No l onger eligible based on patient's age to complete this topic RSV Immunization Patients Under 20 months Aged Out No longer eligible based on patient's age to complete this topic Varicella Vaccines Aged Out No longer eligible based on patient's age to complete this topic Insurance MEDICARE MEDICAID - [place] Care Teams Ballistic Technician Relationship Specialty Start Date End Date Alycia Ruelas MD [address] [facility] [address] [place] [address] PCP - General 02/23/24
--- OUTSIDE RECORDS SUMMARY | 2025-02-15 09:54 | XMS_ITS | Encounter Summary ---
Author Organization [employer] Address [address] [facility] 7t [place] [address] Care Team Providers Care College Intern Name Role Phone Name, El TURNER Primary Care Provider [phone] Kanwal Whiteside PharmD Unavailable [phone] Priscilla Crowder OD Unavailable [phone] John Ervin DPM Unavailable [phone] Marilu Castro MD Unavailable [phone] Reason for Visit * Reason Comments Med Refill Encounter Details Date Type Department Care Team (Late st Contact Info) Description 11/01/2023 Refill [facility] [address] [place], [place] [phone] Kanwal Whiteside, PharmD [address] [place], [place] [phone] Type 2 diabetes mellitus with hyperglycemia, without long-term current use of insulin ([facility]) Social History Tobacco Use Types Packs/Day Years [...] Care Team (Late st Contact Info) Description 03/27/2025 10:30 AM EDT Medication Management [facility] [address] [place] [address] Kanwal Whiteside, PharmD [address] [place] [address] 03/29/2025 10:00 AM EDT Office Visit [facility] [address] [place] [address] Vel, Priscilla, OD [address] [place] [address] documented as of this encounter Goals Goal Patient Goal Type Associated Problems Recent Progress Patient-Stated? Author Hemoglobin A1c < 7 Result Component 7(12/19/2024 10:42 AM EDT) No Kanwal Whiteside, PharmD Record your blood sugar as directed Result Component No Kanwal Whiteside, PharmD Note: Use CGM, ensuring sensor is scanned at least once every 8 hours to capture 24H data. Check BG manually, as directed. documented as of this encounter Visit Diagnoses Diagnosis Type 2 diabetes mellitus with hyperglycemia, without long-term current use of insulin ([facility]) documented in this encounter Additional Health Concerns Assessment Noted Time PHQ-9 Depression Total Score: 0 09/14/19 24 3:42 PM EST documented as of this encounter Care Teams College Intern Relationship Specialty Start Date End Date Name, MD El [address] [place] [address] PCP - General Family Medicine 10/24/15 Kanwal Whiteside, JuventinoD [address] [place] [address] Pharmacist Internal Medicine 01/28/23 Priscilla Crowder OD [address] [place] [address] Optometry 08/18/24 John Ervin DPM [address] [place] [phone] Podiatry 02/18/24 Marilu Castro MD [address] [place] [phone] Family Physician Dermatology 02/18/24 08/21/24 documented as of this encounter
[2025-02-15 11:23] LABS: MANUAL DIFF FLAG NO
[2025-02-15 11:49] LABS: Imm Gran Abs Auto 0.02 X10*3/uL (0.00-0.03); Imm Gran Pct Auto 0.3 % (0.0-0.4); Lymphocytes Absolute Auto 1.6 X10*3/uL (1.2-4.9); Mean Corpuscular HGB Conc 34.0 g/dl (31.0-36.0); Mean Corpuscular Hemoglobin 30.3 pg (27.0-33.0); Mean Corpuscular Volume 89.0 fL (80.0-98.0); NRBC Abs Auto 0.000 X10*3/uL (0.0-0.012); NRBC Pct Auto 0.0 /100WBC (0.0-0.2); Platelet Count 266 X10*3/uL (160-400); Red Blood Count 6.47 X10*6/uL (4.60-5.80); White Blood Count 6.3 X10*3/uL (4.8-10.8)
[2025-02-15 11:55] LABS: Hematocrit 57.6 % (42.0-52.0); Hemoglobin 19.6 g/dl (14.0-18.0)
[2025-02-15 12:06] LABS: Alanine Aminotransferase 22 U/L (0-40); Albumin Level 4.6 g/dL (3.5-5.0); Alkaline Phosphatase 84 U/L (39-117); Anion Gap 13 (12-20); Aspartate Amino Transferase 21 U/L (5-37); Blood Urea Nitrogen 22 mg/dL (9-16); Calcium 9.1 mg/dL (8.4-10.2); Carbon Dioxide 25 mmol/L (22-29); Chloride 109 mmol/L (96-108); Cholesterol 164 mg/dL (<200); Estimated Glomerular Filt Rate 59; HDL Cholesterol 45 mg/dL (>40); Potassium 4.2 mmol/L (3.3-5.1); Sodium 143 mmol/L (135-145); Total Protein 7.4 g/dL (6.5-8.0); Triglycerides 62 mg/dL (<150)
[2025-02-15 12:24] LABS: Microalbum/Creatinine Ratio Ur 7.1 ug/mg cr (<30)
== END 2025-02-15 09:25 | disposition home or self-care (01) ==
LOC: HO.HHCL 09:24
PROVIDERS: PCP Internal Medicine Geriatric Medicine; Visit Provider Internal Medicine Geriatric Medicine
DX: E11.9 Type 2 diabetes mellitus without complications (principal); E78.2 Mixed hyperlipidemia; Z79.4 Long term (current) use of insulin
CPT/HCPCS: 36415; 80053; 80061; 82043; 82570; 85025

== ENCOUNTER 2025-02-21 11:31 | Outpatient (REF) | payer MEDICARE, MEDICAID, SELFPAY ==
[2025-02-21 12:37] LABS: MANUAL DIFF FLAG NO
[2025-02-21 13:56] LABS: Hematocrit 50.4 % (42.0-52.0); Hemoglobin 17.5 g/dl (14.0-18.0); Imm Gran Abs Auto 0.01 X10*3/uL (0.00-0.03); Imm Gran Pct Auto 0.2 % (0.0-0.4); Lymphocytes Absolute Auto 1.6 X10*3/uL (1.2-4.9); Mean Corpuscular HGB Conc 34.7 g/dl (31.0-36.0); Mean Corpuscular Hemoglobin 30.0 pg (27.0-33.0); Mean Corpuscular Volume 86.4 fL (80.0-98.0); NRBC Abs Auto 0.000 X10*3/uL (0.0-0.012); NRBC Pct Auto 0.0 /100WBC (0.0-0.2); Platelet Count 255 X10*3/uL (160-400); Red Blood Count 5.83 X10*6/uL (4.60-5.80); White Blood Count 5.8 X10*3/uL (4.8-10.8)
[2025-02-21 14:35] LABS: Anion Gap 13 (12-20); Blood Urea Nitrogen 20 mg/dL (9-16); Calcium 8.9 mg/dL (8.4-10.2); Carbon Dioxide 23 mmol/L (22-29); Chloride 109 mmol/L (96-108); Estimated Glomerular Filt Rate > 60; Potassium 3.4 mmol/L (3.3-5.1); Sodium 142 mmol/L (135-145)
== END 2025-02-21 11:32 | disposition home or self-care (01) ==
LOC: HO.LAB 11:31
PROVIDERS: PCP Internal Medicine Geriatric Medicine; Visit Provider Internal Medicine Geriatric Medicine
DX: R79.89 Other specified abnormal findings of blood chemistry (principal); D75.1 Secondary polycythemia
CPT/HCPCS: 36415; 80048; 85025